=== PATIENT | female | born 1935 | race African-American/Black ===

== ENCOUNTER 2025-05-24 12:48 | Outpatient (AMB) | payer MEDICARE, SELFPAY ==
--- NOTE | 2025-05-24 13:01 | A.OFFPC_ITS ---
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 Accompanied by: Daughter Allergies No Known Allergies Allergy (Verified 05/24/25 13:07) Medication List - Last Reconciled 05/24/25 by Emi Cantu MD ascorbic acid (vitamin C) 125 mg PO DAILY cholecalciferol (vitamin D3) 25 mcg PO DAILY clopidogrel 75 mg PO DAILY donepezil 10 mg PO BEDTIME ferrous sulfate 325 mg PO DAILY insulin degludec (Tresiba FlexTouch U-100 insulin) 12 units subcut DAILY latanoprost 0.005% 1 drp ophthalmic (eye) BEDTIME levothyroxine (Levoxyl) 75 mcg PO DAILY losartan 100 mg PO DAILY losartan 50 mg PO DAILY memantine 10 mg PO BID rosuvastatin 5 mg PO DAILY vitamin B complex 1 tab PO DAILY Tobacco use date assessed: 05/24/25 Fall risk assessment: No Falls in past year Last assessed Fall Risk: 05/24/25 Dental Screening Dental Screen Date: 05/24/25 Did you have a dental visit in the last 12 months?: No Did you have a dental problem in the last 6 months where you did not have access to dental care?: No HPI HPI Comments History of Present Illness Details History of Present Illness The patient is an 89-year-old female presenting for a Medicare wellness visit. Health Risk Assessment completed and reviewed, sent to scanning. Patient has baseline dementia, no opioid use. Essential Hypertension: The patient has fluctuating blood pressure, with recent hypotensive episodes. Amlodipine was discontinued and losartan was reduced, stabilizing her blood pressure and reducing urinary frequency. Type 2 Diabetes Mellitus: The patient has morning hypoglycemic episodes, with glucose levels between 63-79 mg/dL. Tresiba at 14 units is administered but may need adjustment. Transition to Lantus will be needed due to insurance changes. Dementia: Baseline dementia managed with donepezil and memantine. No significant medication concerns noted currently. Hypothyroidism: Managed with levothyroxine. Reports fatigue and will undergo thyroid panel evaluation. Iron Deficiency Anemia: Previously prescribed iron supplements, continued daily. Vitamin D deficiency- taking vitamin D daily Vitamin b12 deficiency- taking b complex vitamin Hospitalization for Upper Respiratory Infection: Admitted in December for three days, followed by 14 days in rehab at [facility]. Significant weakness noted. History of Stroke: On stable clopidogrel therapy. No acute concerns voiced. Bilateral Trace Peripheral Edema: Noted trace edema on physical examination, clinically insignificant. 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 - Enjoys playing [employer] and cognitive [employer] games - Has some periods of social isolation w hen the caregiver is not present Diagnostic Results: Labs: - Home Blood glucose readings: 05/20 - 76 mg/dL, 05/21 - 63 mg/dL, 05/22 - 79 mg/dL, 05/23 - 78 mg/dL, 05/24 - 106 mg/dL Review of Systems - Constitutional: Denies dizziness, incr eased fatigue noted - Cardiovascular: Reports fluctuating bl ood pressure - Endocrine: Reports low morning blood s ugars - Hematologic: Reports fatigue, possible anemia - Neurological: Denies acute changes in cognition, reports baseline dementia Physical Exam - General- Appears well-groomed, coopera tive - Ears- Cerumen present in right ear - Cardiovascular- Heart sounds normal, s oft murmur across precordium - Abdomen- Abdomen soft with normal ashu l sounds - Peripheral Vascular- Trace edema noted bilaterally in lower extremities Assessment and Plan 1. Essential Hypertension - Monitor blood pressure - Continue losartan, hydrate daily 2. Type 2 Diabetes Mellitus - Decrease Tresiba to 12 units for use w hen fasting sugars are more than 130 - Monitor glucose levels 3. Dementia - Continue current meds - Encourage cognitive activities 4. Hypothyroidism - Check thyroid function 5. Iron Deficiency Anemia - Monitor iron levels - Continue iron supplements 6. History of Stroke - Continue clopidogrel 7. Bilateral Trace Peripheral Edema - Monitor for changes Discussion Notes During today's visit, I reviewed the management and treatment options for the patient's current health concerns, such as hypertension and diabetes management. We discussed implementing changes to Tresiba dosage based on morning blood glucose levels to avoid hypoglycemia. The transition to Lantus was discussed and planned for June. We addressed the risks and benefits of continuous medications, including clopidogrel for stroke prevention and the need for monitoring blood pressure and glucose levels to manage treatment efficacy and side effects. I recommended specific tests to determine the causes of fatigue, including a thyroid panel and iron studies. Further discussion covered the importance of maintaining a balanced diet, regular hydration, and continued cognitive and physical activity engagement to promote overall well-being. I spoke with the patient's caregiver about speaking with case management re support services. Pt has limited benefits and she has a lot of out of pocket costs. Discussed preventive guidelines indicated for age including bone density, COVID 19 vaccine, already received flu vaccine and RSV. Patient Instructions - Monitor blood pressure at home regular ly. - Take 12 units of Tresiba if fasting bl ood sugar is over 130 mg/dL. - Maintain a balanced diet and hydrate w ell. - Stick to exercise routines, using stre tch bands and bicycle pedals. - Record any changes in symptoms and rep ort at the next visit. - Watch for signs of dizziness or fatigu e and report as needed. - Complete laboratory tests as scheduled . - Continue taking all prescribed medicat ions. - Engage in memory-stimulating activitie s daily. [facility] Medical History (Updated 05/24/25 @ 15:10 by Emi Cantu MD) Routine medical exam Anemia Vitamin D deficiency History of stroke History of DVT (deep vein thrombosis) History of pulmonary embolism Peripheral neuropathy Dementia Type 2 diabetes mellitus with hypoglycemia Hypertension B12 deficiency anemia Hypothyroidism Surgical History (Updated 05/23/25 @ 16:28 by Emi Cantu MD) History of cholecystectomy Social History Housing: House Patient Tobacco Use Status: Never used Tobacco e-Cigarette/Vaping Use: Never Used service: No Current occupational status: retired Questionnaire AUDIT C Alcohol Use Questionnaire (AUDIT-C) 1. How often do you have a drink containing alcohol?: Never 3. How often do you have six or more drinks on one occasion?: Never Total Score: 0 Physical exam (Primary Care) Vital Signs: Last Vital Signs Temp 97.9 F 05/24/25 13:13 Pulse 68 05/24/25 13:13 Resp 16 05/24/25 13:13 BP 120/74 05/24/25 13:13 Pulse Ox 97 05/24/25 13:13 Oxygen Delivery Method Room Air 05/24/25 13:13 Oxygen Flow Rate 97.9 05/24/25 13:13 BMI result Body Mass Index 23.7 Tobacco/Smoking Status: Tobacco use Status Tobacco use date assessed 05/24/25 05/24/25 13:05 Patient Tobacco Use Status Never used Tobacco 05/24/25 13:16 e-Cigarette/Vaping Use Never Used 05/24/25 13:16 Coding Level of Care Code Complex EM visit Add On G2211 Diagnoses Primary hypertension I10 Hypertension type: primary hypertension Type 2 diabetes mellitus with hypoglycemia without coma, with long-term current use of insulin E11.649; Z79.4 Diabetes mellitus mcfp insulin use: with intermediate card tender use Diabetes mellitus complication detail: without coma Acquired hypothyroidism E03.9 Hypothyroidism type: acquired Vitamin D deficiency E55.9 Other vitamin B12 deficiency anemia D51.8 Vitamin B12 deficiency anemia type: other B12 deficiency Iron deficiency anemia, unspecified iron deficiency anemia type D50.9 Anemia type: iron deficiency Iron deficiency anemia type: unspecified iron deficiency Dementia without behavioral disturbance, psychotic disturbance, mood disturbance, or anxiety, unspecified dementia severity, unspecified dementia type F03.90 Dementia type: unspecified type Dementia severity: unspecified severity Dementia behavioral or psychological symptom: without behavioral, psychotic, or mood disturbance or anxiety Routine medical exam Z00.00 Assessment & Plan Assessment & Plan (1) Hypertension: Code(s): I10 - Essential (primary) hypertension Category: Medical Qualifiers: Hypertension type: primary hypertension Qualified Code(s): I10 - Essential (primary) hypertension (2) Type 2 diabetes mellitus with hypoglycemia: Code(s): E11.649 - Type 2 diabetes mellitus with hypoglycemia without coma Category: Medical Qualifiers: Diabetes mellitus intermediate card tender insulin use: with intermediate card tender use Diabetes mellitus complication detail: without coma Qualified Code(s): E11.649 - Type 2 diabetes mellitus with hypoglycemia without coma; 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 (3) Hypothyroidism: Code(s): E03.9 - Hypothyroidism, unspecified Category: Medical Qualifiers: Hypothyroidism type: acquired Qualified Code(s): E03.9 - Hypothyroidism, unspecified (4) Vitamin D deficiency: Code(s): E55.9 - Vitamin D deficiency, unspecified Category: Medical (5) B12 deficiency anemia: Code(s): D51.9 - Vitamin B12 deficiency anemia, unspecified Category: Medical Qualifiers: Vitamin B12 deficiency anemia type: other B12 deficiency Qualified Code(s): D51.8 - Other vitamin B12 deficiency anemias (6) Anemia: Code(s): D64.9 - Anemia, unspecified Category: Medical Qualifiers: Anemia type: iron deficiency Iron deficiency anemia type: unspecified iron deficiency Qualified Code(s): D50.9 - Iron deficiency anemia, unspecified (7) Dementia: Code(s): F03.90 - Unspecified dementia, unspecified severity, without behavioral disturbance, psychotic disturbance, mood disturbance, and anxiety Category: Medical Qualifiers: Dementia type: unspecified type Dementia severity: unspecified severity Dementia behavioral or psychological symptom: without behavioral, psychotic, or mood disturbance or anxiety Qualified Code(s): F03.90 - Unspecified dementia, unspecified severity, without behavioral disturbance, psychotic disturbance, mood disturbance, and anxiety (8) Routine medical exam: Code(s): Z00.00 - Encounter for general adult medical examination without abnormal findings Category: Medical Plan - Adjust Tresiba dosage to 12 units if glucose >130 mg/dL - Conduct HbA1c, iron studies, CBC, and thyroid panel - Engage in cognitive and physical activities - Ensure adequate hydration and balanced diet - Coordinate elder support services Orders: Orders Comprehensive Met. Panel Today E03.9 - Hypothyroidism, unspecified, E11.649 - Type 2 diabetes mellitus with hypoglycemia without coma, I10 - Essential ( primary) hypertension TSH reflex Free T4 Today D51.9 - Vitamin B12 deficiency anemia, unspecified, E03.9 - Hypothyroidism, unspecified, E11.649 - Type 2 diabetes mellitus with hypoglycemia without coma, E55.9 - Vitamin D deficiency, unspecified Vitamin B12 Today D51.9 - Vitamin B12 deficiency anemia, unspecified IRON PROFILE Today D64.9 - Anemia, unspecified Folate Today D51.9 - Vitamin B12 deficiency anemia, unspecified, D64.9 - Anemia, unspecified XR DEXA axial skeleton Today Z78.0 - Asymptomatic menopausal state Complete Blood Count Auto Diff Today E55.9 - Vitamin D deficiency, unspecified Microalbumin, Random (w Creat) Today I10 - Essential (primary) hypertension Hemoglobin A1c Today E11.649 - Type 2 diabetes mellitus with hypoglycemia without coma Vitamin D 25-OH Total Today E55.9 - Vitamin D deficiency, unspecified Lipid Panel Today E11.649 - Type 2 diabetes mellitus with hypoglycemia without coma, I10 - Essential (primary) hypertension Medications: New clopidogrel 75 mg PO DAILY 90 tabs 3RF donepezil 10 mg PO BEDTIME 90 tabs 3RF ferrous sulfate 325 mg PO DAILY 90 tabs 3RF levothyroxine (Levoxyl) 75 mcg PO DAILY 90 tabs 3RF memantine 10 mg PO BID 180 tabs 3RF rosuvastatin 5 mg PO DAILY 90 tabs 3RF Patient Instructions: Decrease tresiba to 12 units to be used when fasting sugars are more than 130 get labs schedule bone density
[2025-05-24 13:13] VITALS: BP 120/74; PULSE 68; RESP 16; TEMP 36.6; O2SAT 97; BMI 23.7
--- OUTSIDE RECORDS SUMMARY | 2025-05-24 14:42 | XMS_ITS | Patient Health Record ---
Author Organization [facility] Address [address] [address] Care Team Providers Care Base Cloth Inspector Name Role Phone Emi Cantu Primary Care Provider Unavaila ble SILVIANO MENDEZ Unavailable [phone] Allergies Allergen (clinical drug ingredient) Drug/Non Drug Allergy documented on EMR Reaction Allergy Type Onset Date Status atorvastatin Atorvastatin leg heaviness Drug Allergy Active lisinopril Lisinopril cough Drug Allergy Activ e ramipril Ramipril cough Drug Allergy Active Reason For Referral No Information Medications Medication SIG (Take, Route, Frequency, Duration) Notes Start Date End Date Status Donepezil HCl 10 MG 1 tablet at bedtime Orally Once a day Active Losartan Potassium 100 MG 1 tablet Orally Once a day Active Memantine HCl 10 MG 1 tablet Orally Once a day Active Tresiba FlexTouch 100 UNIT/ML as directed Subcutaneous Act cristela Calcium 600+D Active Vitamin B12 1000 MCG 1 tablet Orally Once a day Active Ferrous Sulfate 325 (65 Fe) MG 1 tablet Orally Three times a Week Active Crestor 5 MG 1 tablet Orally Once a day Active Levoxyl 75 MCG 1 tablet in the morn ing on an empty stomach Orally Once a day Active Vitamin D3 50 MCG (2000 UT) 1 capsule Orally Once a day Active Clopidogrel Bisulfate 75 MG 1 tablet Orally Once a day A ctive Problems Problem Type SNOMED Code ICD Code Onset Dates Problem Status W/U Status Risk Notes Problem Acquired hammer toe of right foot ([id number] 105) Other hammer toe(s) (acquired), right foot (M20.41) Active confirmed Problem Acquired hammer toe of left foot ([id number] 103) Other hammer toe(s) (acquired), left foot (M20.42) Active confirmed Encounters Encounter Location Date Provider Diagnosis [facility] [address] [address] 03/21/2025 SILVIANO MENDEZ Other hammer toe(s) (acquired), right foot M20.41 ; Other hammer toe(s) (acquired), left foot M20.42 and 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 Past medical history was reviewed. Discussed proper glucose control, exercise, and diet. I stressed the importance of a HgbA1c below 7. Explained to patient and daughter proper shoe gear and importance of daily foot checks. I stressed with the patient that they should never walk barefoot. Patient has lesser hammertoes that are not bothersome. She wears supportive shoe gear and has great arterial perfusion. I assured patient and daughter that I see no acute concerns at this time. I discussed things to watch for. I advised they call if there are any questions or concerns. I can recheck in 6mo or sooner if needed. Plan Of Treatment Next Appt Details Provider Name:SILVIANO MENDEZ, 09/24/2025 01:00:00 PM, [address] [facility], [place] [address], [place], [address], Insurance Providers Payer Name Payer Address Payer Phone Subscriber Number Group Number Insured Name Patient Relationship to Insured Coverage Start Date Coverage End Date [employer] of [place] [id number] [id number] Kylee Strong Self - patient is the insured Medical (General) History Medical History History ICD Code Anemia Dementia Glaucoma History of DVT of lower extremity History of pulmonary embolism History of stroke Hypertension Hypothyroidism Memory change Peripheral neuropathy Type 2 diabetes mellitus Urinary Frequency Hospitalization History Reason Date(Month/Year) upper respiratory infection 12/2024
== END 2025-05-24 14:50 | disposition home or self-care (01) ==
LOC: HO.HMCHD 12:49
PROVIDERS: PCP Internal Medicine; Visit Provider Internal Medicine
DX: I10 Essential (primary) hypertension (principal); E11.649 Type 2 diabetes mellitus with hypoglycemia without coma; Z79.4 Long term (current) use of insulin; E03.9 Hypothyroidism, unspecified; E55.9 Vitamin D deficiency, unspecified; D51.8 Other vitamin B12 deficiency anemias; D50.9 Iron deficiency anemia, unspecified

== ENCOUNTER → 2025-05-24 12:48 | Outpatient (BNVA) | payer MEDICARE, SELFPAY | PROVIDERS: PCP Internal Medicine; Visit Provider Internal Medicine | DX: I10 Essential (primary) hypertension (principal); E11.649 Type 2 diabetes mellitus with hypoglycemia without coma; E03.9 Hypothyroidism, unspecified; E55.9 Vitamin D deficiency, unspecified; D51.8 Other vitamin B12 deficiency anemias; D50.9 Iron deficiency anemia, unspecified; F03.90 Unspecified dementia, unspecified severity, without behavioral disturbance, psychotic disturbance, mood disturbance, and anxiety; R60.0 Localized edema; Z86.73 Personal history of transient ischemic attack (TIA), and cerebral infarction without residual deficits; Z79.4 Long term (current) use of insulin; Z79.899 Other long term (current) drug therapy | CPT/HCPCS: 99212 ==

== ENCOUNTER 2025-07-18 15:30 | Inpatient (IN) | payer MEDICARE, SELFPAY ==
[2025-07-18] VITALS (7 sets, daily range): BP systolic 142–185; BP diastolic 76–92; PULSE 80–107; RESP 16–21; TEMP 37.1–39.3; O2SAT 93–99; BMI 19.4
--- NOTE | ~2025-07-18 | XR_ITS ---
EXAMINATION: XR CHEST CLINICAL INFORMATION: ?pneunomia COMPARISON: None available. TECHNIQUE: Frontal view of the chest was obtained. FINDINGS: Lungs: Low lung volumes with elevation of the right hemidiaphragm. No focal consolidation. No evidence of pulmonary edema. Pleura: No pleural effusion or pneumothorax. Heart/Mediastinum: Cardiomediastinal silhouette is within normal limits. Bones: No acute findings. XR/XR chest 1V IMPRESSION: No acute cardiopulmonary process. Electronically signed by: Zhane Elizabeth MD 07/18/2025 04:59 PM EST
--- NOTE | ~2025-07-18 | XR_ITS ---
EXAMINATION: XR CHEST CLINICAL INFORMATION: cough COMPARISON: Prior day. TECHNIQUE: AP portable view of the chest was obtained. FINDINGS: There is an elevated right hemidiaphragm, unchanged from the prior examination. The cardiac, hilar, and mediastinal contours are normal. The lungs demonstrate increased patchy subtle opacities in the left lower lung region, more conspicuous than yesterday's exam, possibly representing developing pneumonia. The right lung appears clear. There is no effusion or pneumothorax. No focal osseous or soft tissue abnormality. XR/XR chest 1V IMPRESSION: Findings suggesting developing left lower lobe pneumonia in the appropriate clinical setting. Electronically signed by: Gene Guajardo MD 07/19/2025 12:42 PM JI
--- NOTE | ~2025-07-18 | US_ITS ---
CLINICAL HISTORY: h o DVT Venous duplex ultrasound bilateral lower extremity Comparison: None provided Findings: There is deep venous thrombus in the left posterior tibial vein The visualized deep veins are otherwise fully compressible with normal Doppler color flow and spectral tracings. No popliteal cyst. IMPRESSION: 1. Positive for left posterior tibial deep vein thrombosis. This document has been electronically signed by: Navi Pinto MD on 07/22/2025 18:38:36
--- NOTE | 2025-07-18 15:58 | ECG_ITS ---
Test Reason : FEVER Blood Pressure : */* mmHG Vent. Rate : 100 BPM Atrial Rate : 100 BPM P-R Int : 168 ms QRS Dur : 68 ms QT Int : 354 ms P-R-T Axes : 60 -6 49 degrees QTcB Int : 456 ms Normal sinus rhythm Septal infarct , age undetermined Abnormal ECG No previous ECGs available Referred By: Generic ED Physician Electronically Signed By: William Paz
[2025-07-18 16:29] LABS: MANUAL DIFF FLAG NO
[2025-07-18 16:31] LABS: Appearance Urine Clear; Glucose Urine UA Negative (Negative); PH 6.5 (5.0-9.0); Specific Gravity - Urine 1.020 (1.005-1.025); UMIC TRIGGER UACC YES
[2025-07-18 16:38] LABS: INTERNATIONAL NORM RATIO 1.1 (0.9-1.1); Prothrombin Time 13.0 SEC (11.2-13.5)
[2025-07-18 16:39] LABS: IDNOW Serial# 58CA691E; Influenza B2 Negative (Negative)
[2025-07-18 16:41] LABS: Hematocrit 38.7 % (37.0-47.0); Hemoglobin 12.8 g/dl (12.0-16.0); Imm Gran Abs Auto 0.04 X10*3/uL (0.00-0.03); Imm Gran Pct Auto 0.6 % (0.0-0.4); Lymphocytes Absolute Auto 1.1 X10*3/uL (1.2-4.9); Mean Corpuscular HGB Conc 33.1 g/dl (31.0-35.0); Mean Corpuscular Hemoglobin 30.7 pg (27.0-33.0); Mean Corpuscular Volume 92.8 fL (80.0-98.0); NRBC Abs Auto 0.000 X10*3/uL (0.0-0.012); NRBC Pct Auto 0.0 /100WBC (0.0-0.2); Platelet Count 157 X10*3/uL (160-400); Red Blood Count 4.17 X10*6/uL (4.20-5.50); White Blood Count 6.8 X10*3/uL (4.8-10.8)
[2025-07-18 16:44] LABS: UACC Culture Trigger YES
[2025-07-18 16:47] LABS: Alanine Aminotransferase 41 U/L (0-31); Albumin Level 3.4 g/dL (3.5-5.0); Alkaline Phosphatase 87 U/L (39-117); Anion Gap 11 (12-20); Aspartate Amino Transferase 77 U/L (5-31); Blood Urea Nitrogen 12 mg/dL (9-16); Calcium 8.9 mg/dL (8.4-10.2); Carbon Dioxide 23 mmol/L (22-29); Chloride 105 mmol/L (96-108); Creatinine Clr Calc Pharmacy 44.2; Estimated Glomerular Filt Rate > 60; Magnesium 1.8 mg/dL (1.6-2.6); Potassium 4.0 mmol/L (3.3-5.1); Sodium 135 mmol/L (135-145); Total Protein 6.7 g/dL (6.5-8.0)
--- NOTE | 2025-07-18 16:48 | ED.FEVER ---
HPI - Fever General Chief Complaint: Fever Stated Complaint: ?Uti, weakness, ?pneumonia Time Seen by Provider: 07/18/25 16:04 History of Present Illness HPI Narrative: Patient is an 89-year-old female with a history of dementia. History of diabetes. History of hypertension. Presented today with generalized malaise weakness. High fever up to 102 some mild coughing. Patient from home. Lives with her granddaughter. Her daughter also visits. She also has additional help at home. Generalized malaise weakness going on for about 24 hours. Related Data Home Medications ?Medication ?Instructions ?Recorded ?Confirmed ascorbic acid (vitamin C) 125 mg 125 mg PO DAILY 05/24/25 07/18/25 chewable tablet cholecalciferol (vitamin D3) 25 25 mcg PO DAILY 05/24/25 07/19/25 mcg (1,000 unit) capsule insulin degludec 100 unit/mL (3 14 unit subcut DAILY PRN BG >130 05/24/25 07/19/25 mL) subcutaneous pen (Tresiba FlexTouch U-100 insulin) latanoprost 0.005 % eye drops 1 drp ophthalmic (eye) BEDTIME 05/24/25 07/18/25 losartan 50 mg tablet 50 mg PO DAILY 05/24/25 07/19/25 cyanocobalamin (vitamin B-12) 2,500 mcg PO DAILY 07/19/25 07/19/25 2,500 mcg tablet rosuvastatin 5 mg tablet 5 mg PO BEDTIME 07/19/25 07/19/25 Previous Rx's ?Medication ?Instructions ?Recorded blood sugar diagnostic (FreeStyle #100 ea 05/24/25 Lite Strips) blood-glucose meter (FreeStyle #1 ea 05/24/25 Lite Meter kit) clopidogrel 75 mg tablet 75 mg PO DAILY #90 tabs 05/24/25 donepezil 10 mg tablet 10 mg PO BEDTIME #90 tabs 05/24/25 ferrous sulfate 325 mg (65 mg 325 mg PO DAILY #90 tabs 05/24/25 iron) tablet lancets 28 gauge (FreeStyle #100 ea 05/24/25 Lancets) levothyroxine 75 mcg tablet 75 mcg PO DAILY #90 tabs 05/24/25 (Levoxyl) memantine 10 mg tablet 10 mg PO BID #180 tabs 05/24/25 Allergies Allergy/AdvReac Type Severity Reaction Status Date / Time No Known Allergies Allergy Verified 07/18/25 15:57 Review of Systems Review of Systems: Positive generalized malaise weakness PMFSH Past Medical History Attestation statement: The following information was validated with the patient. Medical History Routine medical exam Anemia Vitamin D deficiency History of stroke History of DVT (deep vein thrombosis) History of pulmonary embolism Peripheral neuropathy Dementia Type 2 diabetes mellitus with hypoglycemia Hypertension B12 deficiency anemia Hypothyroidism Surgical History History of cholecystectomy Social History Social History Housing: House Patient Tobacco Use Status: Never used Tobacco Smoked in Last 30 Days: No e-Cigarette/Vaping Use: Never Used Use of substances other than those prescribed or required for medical reasons: No Advance Directives: No Advance Directives Information Provided: No Do you have a plan to hurt others: No Plan service: No Current occupational status: retired Physical Exam Exam: Exam: Appearance: Alert. Oriented X1. No acute distress. Eyes: Pupils equal, round and reactive to light. ENT: Pharynx normal. Neck: Normal inspection. Neck supple. No lymph nodes noted. No crepitus CVS: Normal heart rate and rhythm. Pulses normal. Normal S1 and S2 Respiratory: No respiratory distress. Breath sounds normal. No Wheezing. No rales Abdomen: Soft and nontender. No rigidity. No distention. good BS x4 Skin: Skin warm and dry. Normal skin color. Normal skin turgor. Extremities: No lower extremity edema. Neurovascular intact to all extremities. No Lacerations. No Rash Neuro: Oriented X 1. No motor deficit. No sensory deficit. Moving all extermities. No slurred speech Vital Signs: Vital Signs: Last Vital Signs Temp 98.1 F 07/19/25 15:47 Pulse 84 07/19/25 15:47 Resp 20 07/19/25 15:47 BP 143/71 H 07/19/25 15:47 Pulse Ox 94 07/19/25 15:47 O2 Del Method Room Air 07/19/25 15:47 BMI result Body Mass Index 19.4 Course Reevaluation(s) Reevaluation #1: Time: 09:34 Date: 07/19/25 Provider: Kristin Kirk PA-C Patient in physician observation for case management needs. No acute events reported overnight.? No current issues or complaints. Patient is positive for Flu A and is febrile with a temp of 103.1 but has not taken Tylenol/ibuprofen for management. I put a scheduled order for 650 mg of Tylenol to be given QID for fever. Physical therapy recommends STR and currently awaiting bed placement. - On physical exam patient lungs clear to auscultation without rhonchi, expiratory wheeze, no increased work of breathing or muscle use noted, patient without tachycardia. We will treat with a dose of 650 mg p.o. Tylenol and reassess fever. - Time: 11:16 Patient temperature is 103.8? rectally after 650 mg p.o. Tylenol. Patient will receive 1 L IV fluids, with 15 mg IV Toradol (creatinine WNL) and we will reassess after administration. 07/19/2025 1151 Christine Sales PA-C ---> I spoke with the patient's daughter at the patient's bed side at length about our plan for management of the patient. I explained to the patient and the daughter that at this time, she does not meet admission criteria. However, we are going to repeat her chest x-ray and monitor her fever. If her fever continues to be elevated after our previously noted interventions - I will discuss other options with the patient and her daughter. Patient's daughter states that she was most concerned about the patient potentially being discharged back home today when she is as weak as she is. I assured the patient and her daughter that we are not discharging her from the department at this time. Patient's daughter informed me the patient has had a history of DVT approximately 10 years ago and PE 5 years ago. Patient is only on Plavix at this time without any anti-coagulation medication. Patient placed in compression stockings + started on lovenox. Reevaluation #2: Date: 07/19/25 Provider: Kristin Kirk PA-C There were concerns that the patient has been worsening, is positive for flu and was febrile with a rectal temp of 103.8. Patient was given 650 mg p.o. Tylenol, 1 L IV fluids, and 15 mg IV Toradol and CXR. CXR concerning for right lower lobe pneumonia, patient was given 1 g ceftriaxone for bacterial coverage, and patient was started on compression stockings and Lovenox due to history of DVT approximately 10 years ago, and PE 5 years ago. Patient's symptoms most likely due to flu a, I do not suspect sepsis at this time. I reached out to hospitalist Dr. Hercules for admission to medicine due to curb 65 score of 2 and will be admitted to Medicine for further evaluation and management of pneumonia and flu A. My colleague Christine BENTLEY spoke with family and updated them on admission and were agreeable to the plan. Time: 15:58 Medications Administered Generic Name Dose Route Start Last Admin Trade Name Freq PRN Reason Stop Dose Admin Acetaminophen 650 mg 07/19/25 09:34 07/19/25 10:23 Acetaminophen 325 Mg Tablet PO 650 mg QID PRN Administration Fever Ascorbic Acid 125 mg 07/18/25 20:45 07/19/25 08:50 Ascorbic Acid 250 Mg Tablet PO 125 mg DAILY PREETI Administration Clopidogrel Bisulfate 75 mg 07/19/25 09:00 07/19/25 08:50 Clopidogrel Bisulfate 75 Mg Tablet PO 75 mg DAILY PREETI Administration Donepezil HCl 10 mg 07/18/25 21:00 07/18/25 21:58 Donepezil Hcl 10 Mg Tablet PO 10 mg BEDTIME PREETI Administration Enoxaparin Sodium 40 mg 07/19/25 12:15 07/19/25 12:40 Enoxaparin Sodium 40 Mg/0.4 Ml Syringe SUBCUT 40 mg Q24H PREETI Administration Ferrous Sulfate 324 mg 07/19/25 09:00 07/19/25 08:50 Ferrous Sulfate 324 Mg Tablet. PO 324 mg DAILY PREETI Administration Latanoprost 1 drop 07/18/25 21:30 07/18/25 21:58 Latanoprost 0.005 % Ophth Rupinder 2.5 Ml Drops EYE-BOTH 1 drop BEDTIME PREETI Administration Levothyroxine Sodium 75 mcg 07/18/25 20:45 07/19/25 08:49 Levothyroxine Sodium 75 Mcg Tablet PO 75 mcg DAILY PREETI Administration Memantine 10 mg 07/18/25 21:00 07/19/25 08:51 Memantine Hcl 10 Mg Tablet PO 10 mg BID PREETI Administration Multivitamins/Vitamin C 1 tab 07/18/25 20:45 07/19/25 08:50 Multivitamin Tablet PO 1 tab DAILY PREETI Administration Vitamin D 25 mcg 07/18/25 20:45 07/19/25 08:50 Cholecalciferol (Vitamin D3) 25 Mcg Tablet PO 25 mcg DAILY PREETI Administration Discontinued Medications Generic Name Dose Route Start Last Admin Trade Name Aly PRN Reason Stop Dose Admin Acetaminophen 650 mg 07/18/25 16:38 07/18/25 16:58 Acetaminophen 325 Mg Tablet PO 07/18/25 16:39 650 mg ONCE ONE Administration Atorvastatin Calcium 20 mg 07/18/25 20:45 07/19/25 08:51 Atorvastatin Calcium 20 Mg Tablet PO 20 mg DAILY PREETI Administration Azithromycin 500 mg 07/19/25 13:32 07/19/25 15:42 Azithromycin 500 Mg Tablet PO 07/19/25 13:33 500 mg ONCE ONE Administration Sodium Chloride 500 mls @ 999 mls/hr 07/18/25 17:00 07/18/25 17:35 Ns IV 07/18/25 17:30 Infused .Q31M PREETI Infusion Sodium Chloride 1,000 mls @ 999 mls/hr 07/18/25 20:15 07/18/25 21:57 Ns IV 07/18/25 21:15 Infused .Q1H1M PREETI Infusion Lactated Ringer's 1,000 mls @ 999 mls/hr 07/19/25 11:15 07/19/25 13:55 Lr IV 07/19/25 12:15 Infused .Q1H1M ONE Infusion Ceftriaxone Sodium 1 gm/ 50 mls @ 100 mls/hr 07/19/25 13:32 07/19/25 14:59 Sodium Chloride IV 07/19/25 14:01 Infused ONCE ONE Infusion Insulin Glargine 7 unit 07/19/25 09:00 07/19/25 08:52 Insulin Glargine,Hum.Rec.Anlog 100 Unit/Ml 10 Ml Vial SUBCUT 7 unit DAILY PREETI Administration Ketorolac Tromethamine 15 mg 07/18/25 16:51 07/18/25 16:59 Ketorolac Tromethamine 15 Mg/Ml Vial IVPUSH 07/18/25 16:52 15 mg ONCE ONE Administration Ketorolac Tromethamine 15 mg 07/19/25 11:15 07/19/25 11:31 Ketorolac Tromethamine 15 Mg/Ml Vial IVPUSH 07/19/25 11:16 15 mg ONCE ONE Administration Losartan Potassium 100 mg 07/18/25 20:45 07/19/25 08:49 Losartan Potassium 50 Mg Tablet PO 100 mg DAILY PREETI Administration Protocol Non-Formulary Medication 325 mg 07/18/25 20:45 07/18/25 22:01 Ferrous Sulfate PO Not Given DAILY PREETI Oseltamivir Phosphate 75 mg 07/18/25 16:53 07/18/25 17:02 Oseltamivir Phosphate 75 Mg Capsule PO 07/18/25 16:54 75 mg ONCE ONE Administration Medical Decision Making Medical Decision Making [facility] Narrative: Patient is 89 years old tested positive for influenza. My interpretation patient's chest x-ray is grossly negative. O2 sat maintained at% on room air patient is very weak unable to ambulate. Discussed with the hospitalist team felt patient not appropriate for admission. Case management was consulted physical therapy consult put in. Will need further evaluation in a.m.. Patient no acute distress. Urine is not infected. Blood count showed a normal white cell count of 6.8. Electrolytes showed a lactate of 2.0. No severe sepsis. Patient is troponin was negative. Differential Diagnosis Differential Diagnoses: The differential diagnosis associated with the presentation includes Influenza Admission/Observation Consideration of admission/observation: Escalation of care including admission/observation considered Consult Healthcare Provider Management of the patient was discussed with: Hospitalist Lab Data [facility] Lab Attestation statement: I reviewed the patient's lab results. 07/18/25 16:09 07/18/25 16:09 Labs: Lab Results 07/18/25 07/19/25 07/19/25 Range/Units 16:09 08:00 11:37 WBC 6.8 (4.8-10.8) X10*3/uL RBC 4.17 L (4.20-5.50) X10*6/uL Hgb 12.8 (12.0-16.0) g/dl Hct 38.7 (37.0-47.0) % MCV 92.8 (80.0-98.0) fL MCH 30.7 (27.0-33.0) pg MCHC 33.1 (31.0-35.0) g/dl RDW 13.2 (11.0-16.0) % Plt Count 157 L (160-400) X10*3/uL MPV 10.1 (9.4-12.3) fL Immature Gran % (Auto) 0.6 H (0.0-0.4) % Neut % (Auto) 76.3 H (45-73) % Lymph % (Auto) 16.4 L (20-40) % [place] % (Auto) 6.3 (2-11) % Eos % (Auto) 0.0 (0-4) % Baso % (Auto) 0.4 (0-2) % Lymph # (Auto) 1.1 L (1.2-4.9) X10*3/uL [place] # (Auto) 0.4 (0.1-1.2) X10*3/uL Eos # (Auto) 0.0 (0.0-0.4) X10*3/uL Baso # (Auto) 0.0 (0.0-0.2) X10*3/uL Abs Immat Gran (auto) 0.04 H (0.00-0.03) X10*3/uL Absolute Neuts (auto) 5.2 (2.0-8.3) x10*3/uL Absolute Nucleated RBC 0.000 (0.0-0.012) X10*3/uL Nucleated RBC % (auto) 0.0 (0.0-0.2) /100WBC PT 13.0 (11.2-13.5) SEC INR 1.1 (0.9-1.1) Sodium 135 (135-145) mmol/L Potassium 4.0 (3.3-5.1) mmol/L Chloride 105 (96-108) mmol/L Carbon Dioxide 23 (22-29) mmol/L Anion Gap 11 L (12-20) BUN 12 (9-16) mg/dL Creatinine 0.77 (0.5-1.4) mg/dL Estim Creat Clear Calc 44.2 Estimated GFR > 60 POC Glucose 118 H 126 H (60-115) mg/dL Random Glucose 151 H (60-115) mg/dL Lactic Acid 2.0 (0.5-2.0) mmol/L Calcium 8.9 (8.4-10.2) mg/dL Magnesium 1.8 (1.6-2.6) mg/dL Total Bilirubin 0.5 (0.0-1.0) mg/dL AST 77 H (5-31) U/L ALT 41 H (0-31) U/L Alkaline Phosphatase 87 (39-117) U/L Troponin I High Sens < 2.7 (<3.5-17.0) ng/L NT-Pro-B Natriuret Pep 644.1 H (<300) pg/mL Total Protein 6.7 (6.5-8.0) g/dL Albumin 3.4 L (3.5-5.0) g/dL Urine Color Yellow Urine Appearance Clear Urine pH 6.5 (5.0-9.0) Ur Specific Power 1.020 (1.005-1.025) Urine Protein Trace (Neg-Trace) mg/dL Urine Glucose (UA) Negative (Negative) mg/dL Urine Ketones Negative (Negative) mg/dL Urine Blood Negative (Negative) Urine Nitrite Negative (Negative) Ur Leukocyte Esterase Small (1+) H (Negative) Urine RBC 0-2 (0-2) /HPF Urine WBC 0-5 (0-5) /HPF Ur Squamous Epith Cells 0-2 (0-2) /HPF Urine Bacteria None Seen (None Seen) Hyaline Casts 0-2 (0-2) /LPF Urine Opiates Screen Not Detected (Not Detect) Ur Buprenorphine Scrn Not Detected (Not Detect) ng/mL Ur Oxycodone Screen Not Detected (Not Detect) ng/mL Urine Methadone Screen Not Detected (Not Detect) ng/mL Urine Fentanyl Screen Not Detected (Not Detect) Ur Barbiturates Screen Not Detected (Not Detect) Ur Phencyclidine Scrn Not Detected (Not Detect) Ur Amphetamines Screen Not Detected (Not Detect) U Benzodiazepines Scrn Not Detected (Not Detect) Urine Cocaine Screen Not Detected (Not Detect) U Marijuana (THC) Screen Not Detected (Not Detect) Influenza Type A (ALEXI) Positive A (Negative) Influenza Type B (ALEXI) Negative (Negative) Influenza A & B Note See Note Independent Interpretation I performed an independent interpretation of an: EKG ( sinus heart rate is 100 DC QRS QTC within normal limits is no acute ST segment elevation) and Plain X-Ray ( chest x-ray is grossly negative) Radiology Impression Discussion of test interpretation with radiology: I have reviewed the radiologist's reading. Independent Historian Clinical information obtained from an independent historian. History obtained from or confirmed by: Other (daughter) External Record Review External record reviewed: Office record Chronic Conditions Patient?s care impacted by: Diabetes Social Determinants Patient?s care significantly limited by Social Determinants of Health including: Problems related to primary support group Discharge Plan Discharge Clinical Impression: Influenza
[2025-07-18 16:51] LABS: NT Pro B Type Natriuretic Pept 644.1 pg/mL (<300)
[2025-07-18 17:51] LABS: Cannabinoid Screen Urine Not Detected (Not Detect)
[2025-07-18 18:01] LABS: Troponin-I High Sensitivity < 2.7 ng/L (<3.5-17.0)
--- NOTE | 2025-07-18 19:45 | PC.NURSE ---
Provider request to trial oxygen ambulation trial. Pt extremely weak, 2A to stand. Oxygen remains > 95%, but pt unable to walk beyond the bedside. Provider Dr. Brandon to be made aware.
--- OUTSIDE RECORDS SUMMARY | 2025-07-18 19:50 | XMS_ITS | Patient Health Record ---
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 Operator Name Role Phone Emi Cantu Primary Care Provider Unavaila ble SILVIANO MENDEZ Unavailable [phone] Allergies Allergen (clinical drug ingredient) Drug/Non Drug [...] Problem Acquired hammer toe of right foot (9082022235127 105) Other hammer toe(s) (acquired), right foot (M20.41) Active confirmed Problem Acquired hammer toe of left foot ([id number] 103) Other hammer toe(s) (acquired), left foot (M20.42) Active confirmed Encounters Encounter Location Date Provider Diagnosis [facility] [address] [address] 03/21/2025 SILVIANO MENDEZ Other hammer toe(s) (acquired), right foot M20.41 ; Other hammer toe(s) (acquired), left foot M20.42 and Diabetic peripheral neuropathy associated with type 2 diabetes mellitus E11.42 [facility] [address] [address] 02/14/2025 SILVIANO MENDEZ Assessments Encounter Date Diagnosis [...] Name:SILVIANO MENDEZ, 09/24/2025 01:00:00 PM, [address] [facility], [place] [address], [place], [address], Insurance Providers Payer Name Payer Address Payer Phone Subscriber Number Group Number Insured Name Patient Relationship to Insured Coverage Start Date Coverage End Date [employer] of [place] [id number] [id number] Kylee Strong Self - patient is the insured Medical (General) History Medical History History ICD Code Anemia Dementia Glaucoma History of DVT of lower extremity History of pulmonary embolism History of stroke Hypertension Hypothyroidism Memory change Peripheral neuropathy Type 2 diabetes mellitus Urinary Frequency Hospitalization History Reason Date(Month/Year) upper respiratory infection 12/2024
--- OUTSIDE RECORDS SUMMARY | 2025-07-18 19:50 | XMS_ITS | Data Portability ---
Author Organization [place] [facility], 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 Pt is a very pleasant woman who was recently diagnosed with a DVT and on day 6 of her eliquis. She has been having discolored urine since initiating eliquis. There has been no progression of symptoms, no other concerning findings to suggest acute blood loss. This was discussed at length with patient. We will send the urine for culture. Pt is having labs drawn tomorrow morning per Dr. Townsend's orders. Unable to access these orders to determine what is being ordered. Pt does not want to have her blood drawn today and possibly again tomorrow. Pt is tolerating activity in the home and there are no red flags to suggest decompensation . At this time will defer labs and continue with plan to have patient drawn tomorrow. We discussed the biggest concern given findings at this time is internal bleeding because of being on eliquis. Pt is dropping her dose down to 5 mg BID tomorrow. This may improve symptoms. Pt and daughter of patient are aware of this and ED precautions reviewed. Pt ambulating in the kitchen at completion of visiti, in NAD, resp easy, speech clear and in good spirits. Not available 07/29/2020 17:22:43 Plan of Treatment Reminders Order Date Submit Date Provider Last Modified By Organization Details Last Modified Time Details Appointments None recorded. Lab urinalysis , dipstick 2019 020 [email or web address] [facility], [address] [place], [address], 0 13:09:17 culture, urine 2019 020 MIRANDA [facility] (Centralized Electronic Ordering - All Locations), Patient Can Go To The Location Of Their Choice, [id number] 0 07:24:49 Referral None recorded. Procedures None recorded. Surgeries None recorded. Imaging None recorded. Medication Orders None recorded. Patient TargetsNo targets recorded. Patient Instructions Encounter Date Encounter Id Patient Instructions Last Modified By Organization Details Last Modified Time 07/29/2020 [id number] [facility] came to your home for evaluation of discolored urine. You are not having any other symptoms. You have had this ever since starting Eliquis about 5 days ago. The urine has blood in it but it does not look infected. It is most likely from this medications. You are decreasing the dose tomorrow which will be good. We sent a urine speciman out to [facility] for a urine culture. You are getting blood checked tomorrow and they are coming to your house to check it. If you experience any other concerns or you have any worsening symptoms, please go to the emergency department for evaluation. [facility]. We cannot always find the exact cause of your symptoms during your initial visit. Please follow up with your primary care provider or specialist to be rechecked or seek medical attention if your symptoms do not go away or get worse. If you develop any new or worsening symptoms and need after hours care, please go to nearest ER and/or call 911. If you have additional concerns or develop a change in your condition between 8am-10pm, please call [facility] at [phone] to help navigate your care. Not available 07/29/2020 13:16:38 Reason for Referral None Reported. Results Created Date Observation Date Name Description Value Unit Range Abnormal Flag Note LastModifiedBy Organization Detail LastModifiedTime 07/29/20 20 07/29/2020 cultu re, urine specimen description CLEAN CATCH (URINE ) Not Available [facility] (Centralized Electronic Ordering - All Locations) Patient Can Go To The Location Of Their Choice, [id number] 07/31/2020 07:24:49 07/29/20 20 07/29/2020 cultu re, urine special requests NONE Not Available [facility] (Centralized Electronic Ordering - All Locations) Patient Can Go To The Location Of Their Choice, [id number] 07/31/2020 07:24:49 07/29/20 20 07/31/2020 cultu re, urine culture <10,00 0 COL/ML abnormal Not Available [facility] (Centralized Electronic Ordering - All Locations) Patient Can Go To The Location Of Their Choice, [id number] 07/31/2020 07:24:49 07/29/20 20 07/31/2020 cultu re, urine report status FINAL 2019 Not Available [facility] (Centralized Electronic Ordering - All Locations) Patient Can Go To The Location Of Their Choice, [id number] 07/31/2020 07:24:49 07/29/20 20 07/29/2020 urina lysis , dipst ick Appearance cloudy Not Available Spr - H ome [address], [place], [address], 07/29/2020 13:05:39 07/29/20 20 07/29/2020 urina lysis , dipst ick Color tea colore d Not Available Spr - Home [address], [place], [address], 07/29/2020 13:05:39 07/29/20 20 07/29/2020 urina lysis , dipst ick Glucose negati ve Not Available Spr - Home [address] [place], [address], 07/29/2020 13:05:39 07/29/20 20 07/29/2020 urina lysis , dipst ick Bilirubin negati ve Not Available Spr - [facility] [address] [place], [address], 07/29/2020 13:05:39 07/29/20 20 07/29/2020 urina lysis , dipst ick Ketones NEG Not Available Spr - Home [address], [place], [address], 07/29/2020 13:05:39 07/29/20 20 07/29/2020 urina lysis , dipst ick Sp. [place] 1.030 Not Available Spr - Home [address] [place], [address], 07/29/2020 13:05:39 07/29/20 20 07/29/2020 urina lysis , dipst ick Blood +++ Not Available Spr - [facility] [address] [place], [address], 07/29/2020 13:05:39 07/29/20 20 07/29/2020 urina lysis , dipst ick pH 5.0 Not Available Spr - [facility] [address] [place], [address], 07/29/2020 13:05:39 07/29/20 20 07/29/2020 urina lysis , dipst ick Protein positi ve Not Available Spr - Home [address] [place], [address], 07/29/2020 13:05:39 07/29/20 20 07/29/2020 urina lysis , dipst ick Urobilirubin negati ve Not Available Spr - [facility] [address] [place], [address], 07/29/2020 13:05:39 07/29/20 20 07/29/2020 urina lysis , dipst ick Nitrites NEG Not Available Spr - [facility] [address] [place], [address], 07/29/2020 13:05:39 07/29/20 20 07/29/2020 urina lysis , dipst ick Leukocytes ++ Not Available Spr - [address] [address] [place], [address], 07/29/2020 13:05:39 Result Notes None recorded. Procedures Surgical History Date Name Laterality Status Provider Name and Address Organization Details Recorded Time cholecystectomy completed MAYA HUDSON NP [address] [place], [address], [place] [facility] 07/29/2020 13:02:37 Imaging Results None recorded. Procedure Notes None recorded. Medical Equipment None Reported. Allergies No known drug allergies Medications Name Sig Start Date Stop Date Status Note LastModified by Organization Details LastModified Time donepezil 5 mg tablet TAKE 1 TABLET BY MOUTH ONCE DAILY AT BEDTIME active Not Available Not Available No t Available donepezil 10 mg tablet TAKE 1 TABLET BY MOUTH ONCE DAILY AT BEDTIME active Not Available Not Available No t Available Levoxyl 75 mcg tablet TAKE 1 TABLET BY MOUTH ONCE DAILY active Not Available Not Available No t Available amlodipine 2.5 mg tablet TAKE 1 TABLET BY MOUTH ONCE DAILY active Not Available Not Available No t Available clopidogrel 75 mg tablet TAKE 1 TABLET BY MOUTH ONCE DAILY active Not Available Not Available No t Available cephalexin 500 mg capsule TAKE 1 CAPSULE BY MOUTH TWICE DAILY FOR 7 DAYS active Not Available Not Available No t Available metformin 1,000 mg tablet TAKE 1 TABLET BY MOUTH TWICE DAILY FOR 90 DAYS active Not Available Not Available No t Available losartan 100 mg tablet TAKE 1 TABLET BY MOUTH ONCE DAILY active Not Available Not Available No t Available rosuvastatin 5 mg tablet TAKE 1 TABLET BY MOUTH ONCE DAILY active Not Available Not Available No t Available BD Ultra-Fine Mini Pen Needle 31 gauge x 3/16 USE 1 UNIT TO INJECT LANTUS ONCE DAILY active Not Available Not Available No t Available Januvia 25 mg tablet TAKE 1 TABLET BY MOUTH ONCE DAILY active Not Available Not Available No t Available Januvia 50 mg tablet TAKE 1 TABLET BY MOUTH ONCE DAILY active Not Available Not Available No t Available Lantus Solostar U-100 Insulin 100 unit/mL (3 mL) subcutaneous pen INJECT 20 UNITS SUBCUTANEOU SLY ONCE DAILY IN THE MORNING active Not Available Not Available Not Available OneTouch Ultra Blue Test Strip USE 1 STRIP TO CHECK GLUCOSE THREE TIMES DAILY active Not Available Not Available No t Available Vitals Date Recorded Heart rate Oxygen saturation Respiratory rate Body temperature Systolic And Diastolic Provider Name and Address Organization Details Last Updated DateTime 0 91 /min 99 % 20 /min 98.3 [degF] 104/60 mm[Hg] Not Available [facility] 0 13:09:19 Social History None recorded. Functional Status None recorded. Mental Status None recorded. Family History Nothing Reported. Medical History Condition Response Diabetes Y Coronary Artery Disease Y Cancer N Asthma N Depression N COPD N High Cholesterol Y Pulmonary Embolism N Hypertension Y Kidney Disease N Gynecological HistoryNo gynecological history recorded. Obstetrics History GPAL:G 0 P 0 0 0 0 Past Encounters Encounter ID Performer Location Encounter Start Date Encounter Closed Date Diagnosis/Indication Diagnosis SNOMED-CT Code Diagnosis ICD10 Code Diagnosis IMO Codes Diagnosis Note [id number] MAYA MCCULLOUGH NP [facility] - [facility] [address] [place] [address] 07/29/2020 12:57:30 08/04/2020 15:09:46 Painless hematuria 750463862 R31.9 Health Concerns Section Related Observation LastModified by Organization Detai ls LastModified Time None Recorded Concern Status LastModified by Organization Details LastModified Time None Recorded Advance Directives Directive None Recorded Payers Insurance Date Sequence Insurance Name Policy Number Policy Jeffries Covered Member ID Jeffries Member ID Guarantor Name 07/28/2020 1 *SELF PAY* Kylee Enriquez [id number] Kylee Enriquez 07/28/2020 1 MEDICARE [place]: [employer] Kylee Enriquez [id number] Kylee Enriquez Notes Date Note Type Note Provider Name and Address Organization Details Recorded Time 07/29/2020 text/html 84 year-old female with history of DM, HTN, HLD, DVT on Eliquis, who calls to the home for funny colored urine. Pt went to the hospital on Jul because of a right swollen lower leg. She was diagnosed with DVT. Pt was started on Eliquis. She was discharged home on Tuesday (delay in getting medications due to holiday). Pt noticed that her urine has been a funny color since getting admitted to the hospital. There has been NO increased in urinary frequency, no dysuria, ,no abdominal pain ,no flank pain. Bowel movements have been normal for her but a bit darker. She is due to decrease her eliquis tomorrow. MAYA MCCULLOUGH NP [address], [place], [address], [place] [facility] 07/29/2020 17:22:51 OBGyn Episode No OBEpisode recorded.
--- NOTE | 2025-07-18 20:04 | PC.NURSE ---
RE: MED REC Pt arrived to ED w/ 2 different meds lists w/ different information. Med rec completed to the best of t/w's ability. Pt pending admission vs. PT/CM.
--- NOTE | 2025-07-18 20:32 | PC.NURSE ---
Pt transferred to hospital bed. Plan for pt to be PT/CM.
--- NOTE | 2025-07-18 21:01 | MHC.CM.ED ---
Pt comes to ED with C/O weakness and malaise. Pt tested positive for FluA. Otherwise, work up negative. Had fever that responding to tylenol. Hospitalist declined admission. Pt had no inpatient hospitalizations in the last month. She has no Q.S. No payor source for STR. Provider and CM spoke with patient's daughter, Mireille Carson. We both explained the 3 midnight rule for medicare. Patient has no funds to private pay. CM explained that facilities may not want to accept a patient with active FLU B. Daughter wants PT evaluation and referrals to home PT. She will call in the morning about the name of the last home PT her mother had in December. CM explained that agencies may not accept her mother secondary to the active Flu diagnosis. Daughter states she will call her mother's PCP, Emi Cantu. Dr. Brandon explained that the hospitalist determines admissions based on admitting criteria. Her mother does not meet criteria for admission. Pt lives with her granddaughter. HCP is not on file. Will hold on referrals pending PT evaluation.
--- NOTE | 2025-07-18 21:14 | MHC.EDTECH ---
Patient put on a hospital bed. 2 assist with standing
--- NOTE | 2025-07-18 21:29 | MHC.EDTECH ---
Patient was changed and repositioned
[2025-07-18] MEDS: Latanoprost 0.005 % Ophth Sol 2.5 ML DROPS 1 DROP EYE-BOTH (21:58)
--- NOTE | 2025-07-18 22:31 | PC.NURSE ---
RN to RN phone report given to Felicia, all questions answered, pt transported to overflow by ED transport in hospital bed.
[2025-07-19] VITALS (11 sets, daily range): BP systolic 114–190; BP diastolic 65–102; PULSE 77–102; RESP 16–20; TEMP 36.6–39.9; O2SAT 93–95; BMI 19.4
[2025-07-19 08:04] LABS: Glucose, Whole Blood 118 mg/dL (60-115)
[2025-07-19] MEDS: Ferrous Sulfate 324 MG TABLET.DR PO (08:50)
[2025-07-19] MEDS: Insulin Glargine,Hum.rec.anlog 100 UNIT/ML 10 ML VIAL 7 UNIT SUBCUT (08:52)
--- NOTE | 2025-07-19 09:18 | PHA.MEDREC ---
Pharmacy Consult ? Medication Reconciliation Pharmacy has completed the medication reconciliation. Patient brought in medication lists from home. Compared with claim history. Spoke with daughter, Mireille, over the phone to confirm medications. She is no longer taking the combination of calcium and D3. Only vitamins OTC she takes is vitamin B12, vitamin D3, vitamin C chewable, and ferrous sulfate (all are taken once daily). Mireille confirmed the losartan was decreased to 50 mg daily. Patient takes 14 units of Tresiba in the morning only if her blood glucose is >130. Patient is not taking amlodipine or Januvia. She last took her medications yesterday morning (did not take Tresiba).
--- NOTE | 2025-07-19 09:31 | MHC.CM.ED ---
Patient remains in ER overflow. Physical therapy eval completed. Rehab is rec. Patient has not had a QHS for Medicare to pay for STR. Patient is uanable to privately pay. No [facility]. Spoke with patient's daughter, Mireille, via telephone at [phone]. Patient has been active with [facility] in the past. Referral made via [facility] to see if they are able to accept patient. Mireille is concerned patient currently has a temp of 103.[address] her way into the ER from [facility]. Kristin AGUILAR aware and has ordered Tylenol for patient. Continue to monitor for d/c needs.
[2025-07-19] MEDS: Lactated Ringers 1,000 ML 999 ML IV (11:31)
--- NOTE | 2025-07-19 11:35 | PC.NURSE ---
Alert and responsive, ate small amount for breakfast. PA aware of elevated temp, new orders obtained, daughter at bedside
[2025-07-19 11:41] LABS: Glucose, Whole Blood 126 mg/dL (60-115)
--- NOTE | 2025-07-19 14:09 | PC.NURSE ---
Alert and responsive, provided with and educated on how to use incentive spirometer. Ate well for lunch, daughter assisted patient to eat. Lungs clear bilaterally, no sob, or wheezing. Denies pain or discomfort. Purewick in place.
--- NOTE | 2025-07-19 14:58 | PC.NURSE ---
awaiting azithromycin from pharmacy
--- NOTE | 2025-07-19 15:15 | PC.NURSE ---
x3 requests made for pharmacy to send azithromycin- pharmacy stating they will send .
--- NOTE | 2025-07-19 17:25 | PC.NURSE ---
Daughter stating patient has not had a bm in x 2 days, requesting JEFF hernandez aware
--- NOTE | 2025-07-19 17:31 | PM.IMHP ---
History of Present Illness Date of Service: 07/19/25 Attending physician on admission: [facility] Chief Complaint: Pneumonia Pt is an 89-year-old female with a PMH significant for dementia, insulin-dependent type 2 diabetes, HTN, HLD, hypothyroidism, hx of DVT 10 years ago, PE 5 years ago, and iron deficiency anemia who initially presented to the emergency room on 07/18 complaining of weakness, generalized malaise, fever, cough, and difficulty breathing. Workup in the ED at that time indicated pt had fever and tested positive for influenza type a. UA was negative UTI. Labs significant for BNP elevated at 644, otherwise overall grossly unremarkable. Pt was placed in physician observation/case management while awaiting placement to [facility]. This afternoon there were concerns that the patient's condition was worsening and so a repeat chest x-ray was ordered which showed the possibility of a developing right lower lobe pneumonia. Pt was given ceftriaxone and azithromycin and request was made for hospital admission for better management on the medical floor. Pt seen and evaluated where she is resting comfortably in bed. Pt is confused with advanced dementia, but reports she feels well. Pt will be admitted to the hospital for generalized weakness in the setting of influenza type a infection with likely superimposed pneumonia. Review of Systems Review of Systems: Yes Unobtainable due to mental status PMFSH Medical History Routine medical exam Anemia Vitamin D deficiency History of stroke History of DVT (deep vein thrombosis) History of pulmonary embolism Peripheral neuropathy Dementia Type 2 diabetes mellitus with hypoglycemia Hypertension B12 deficiency anemia Hypothyroidism Surgical History History of cholecystectomy Social History Household Members: Children Housing: House Do you presently have visiting nurse or other home services: Yes Patient Tobacco Use Status: Never used Tobacco Smoked in Last 30 Days: No e-Cigarette/Vaping Use: Never Used Use of substances other than those prescribed or required for medical reasons: No Currently Displaying Signs/Symptoms of Drug Intoxication Withdrawal: No Have you been hit, kicked, punched, or otherwise hurt by someone within the past year? If so, by whom?: No Do you feel safe in your current relationship?: Yes Is there a partner from a previous relationship who is making you feel unsafe now?: No Are you made to feel afraid or neglected: No Advance Directives: No Advance Directives Information Provided: No Do you have a plan to hurt others: No Plan Recently lost weight without trying: No Nutrition Risks: No Nutritional Risk Patient : No : No Poor oral hygiene: No service: No Current occupational status: retired [employer] Allergies Allergy/AdvReac Type Severity Reaction Status Date / Time No Known Allergies Allergy Verified 07/18/25 15:57 Active Medications: Current Medications Acetaminophen (Acetaminophen 325 Mg Tablet) 650 mg PO QID PRN PRN Reason: Fever Last Admin: 07/19/25 10:23 Dose: 650 mg Ascorbic Acid (Ascorbic Acid 250 Mg Tablet) 125 mg PO DAILY [facility] Last Admin: 07/19/25 08:50 Dose: 125 mg Atorvastatin Calcium (Atorvastatin Calcium 20 Mg Tablet) 20 mg PO BEDTIME [facility] Clopidogrel Bisulfate (Clopidogrel Bisulfate 75 Mg Tablet) 75 mg PO DAILY [facility] Last Admin: 07/19/25 08:50 Dose: 75 mg Cyanocobalamin (Cyanocobalamin (Vitamin B-12) 500 Mcg Tablet) 2,500 mcg PO DAILY [facility] Donepezil HCl (Donepezil Hcl 10 Mg Tablet) 10 mg PO BEDTIME [facility] Last Admin: 07/18/25 21:58 Dose: 10 mg Enoxaparin Sodium (Enoxaparin Sodium 40 Mg/0.4 Ml Syringe) 40 mg SUBCUT Q24H [facility] Last Admin: 07/19/25 12:40 Dose: 40 mg Ferrous Sulfate (Ferrous Sulfate 324 Mg Tablet.Dr) 324 mg PO DAILY [facility] Last Admin: 07/19/25 08:50 Dose: 324 mg Insulin Glargine (Insulin Glargine,Hum.Rec.Anlog 100 Unit/Ml 10 Ml Vial) 10 unit SUBCUT DAILY@0900 PRN PRN Reason: BG >130 Latanoprost (Latanoprost 0.005 % Ophth Rupinder 2.5 Ml Drops) 1 drop EYE-BOTH BEDTIME [facility] Last Admin: 07/18/25 21:58 Dose: 1 drop Levothyroxine Sodium (Levothyroxine Sodium 75 Mcg Tablet) 75 mcg PO DAILY [facility] Last Admin: 07/19/25 08:49 Dose: 75 mcg Losartan Potassium (Losartan Potassium 50 Mg Tablet) 50 mg PO DAILY [facility]; Protocol Memantine (Memantine Hcl 10 Mg Tablet) 10 mg PO BID [facility] Last Admin: 07/19/25 08:51 Dose: 10 mg Multivitamins/Vitamin C (Multivitamin Tablet) 1 tab PO DAILY [facility] Last Admin: 07/19/25 08:50 Dose: 1 tab Vitamin D (Cholecalciferol (Vitamin D3) 25 Mcg Tablet) 25 mcg PO DAILY [facility] Last Admin: 07/19/25 08:50 Dose: 25 mcg Home Medications ?Medication ?Instructions ?Recorded ?Confirmed ?Last Taken ?Type ascorbic acid (vitamin C) 125 mg 125 mg PO DAILY 05/24/25 07/18/25 07/18/25 History chewable tablet cholecalciferol (vitamin D3) 25 25 mcg PO DAILY 05/24/25 07/19/25 07/18/25 History mcg (1,000 unit) capsule insulin degludec 100 unit/mL (3 14 unit subcut DAILY PRN BG >130 05/24/25 07/19/25 Unknown History mL) subcutaneous pen (Tresiba FlexTouch U-100 insulin) latanoprost 0.005 % eye drops 1 drp ophthalmic (eye) BEDTIME 05/24/25 07/18/25 Unknown History losartan 50 mg tablet 50 mg PO DAILY 05/24/25 07/19/25 07/18/25 History cyanocobalamin (vitamin B-12) 2,500 mcg PO DAILY 07/19/25 07/19/25 07/18/25 History 2,500 mcg tablet rosuvastatin 5 mg tablet 5 mg PO BEDTIME 07/19/25 07/19/25 Unknown History Physical Exam Vital Signs and Narrative: Vital Signs: Last Vital Signs Temp 98.1 F 07/19/25 15:47 Pulse 84 07/19/25 15:47 Resp 20 07/19/25 15:47 BP 143/71 H 07/19/25 15:47 Pulse Ox 94 07/19/25 15:47 O2 Del Method Room Air 07/19/25 15:47 BMI result Body Mass Index 19.4 General: AOx1, no acute distress Resp: CTA bilaterally CVS: S1, S2, RRR GI: +BS, NT, no distention Skin: Warm, dry Neuro: Cranial nerves II-XII grossly intact bilaterally. Motor grossly intact bilaterally Musculoskeletal: Generalized weakness Extremities: No edema Psych: Pleasantly confused Results Labs 07/18/25 16:09 07/18/25 16:09 Labs: Laboratory Results - last 24 hr 07/18/25 07/19/25 07/19/25 16:09 08:00 11:37 POC Glucose 118 H 126 H Troponin I High Sens < 2.7 Urine Opiates Screen Not Detected Ur Buprenorphine Scrn Not Detected Ur Oxycodone Screen Not Detected Urine Methadone Screen Not Detected Urine Fentanyl Screen Not Detected Ur Barbiturates Screen Not Detected Ur Phencyclidine Scrn Not Detected Ur Amphetamines Screen Not Detected U Benzodiazepines Scrn Not Detected Urine Cocaine Screen Not Detected U Marijuana (THC) Screen Not Detected Imaging Radiologist's Impressions: Impressions Chest X-Ray 07/19/25 12:27 IMPRESSION: Findings suggesting developing left lower lobe pneumonia in the appropriate clinical setting. Electronically signed by: Gene Guajardo MD 07/19/2025 12:42 PM [facility] Assessment and Plan (1) Influenza: Status: Acute (2) Generalized weakness: Status: Acute Plan Pt is an 89-year-old female with a PMH significant for dementia, insulin-dependent type 2 diabetes, HTN, HLD, hypothyroidism, hx of DVT 10 years ago, PE 5 years ago, and iron deficiency anemia who initially presented to the emergency room on 07/18 complaining of weakness, generalized malaise, fever, cough, and difficulty breathing. Pt will be admitted to the hospital for generalized weakness in the setting of influenza type a infection with likely superimposed pneumonia. Generalized weakness in the setting of acute influenza type A infection with superimposed Flu+, repeat CXR today with possible early developing pneumonia Sepsis unlikely: fever and tachycardia likely secondary to influenza Tamiflu x5 days, empiric ceftriaxone and azithromycin, started 07/19 Follow cultures PT consult for likely eventual STR HTN Continue losartan BP elevated, consider adding additional agent HLD Continue statin Hx of DVT/PE ?PCP prescribing Plavix? Insulin dependent diabetes SSI, diabetic diet Iron deficiency anemia Continue iron supplementation Dementia Continue donepezil, mematine DNR/DNI, verified with HCP/daughter at beside Attending:?Dr. Hercules DVT Prophylaxis: Lovenox Pt will require a hospitalization of at least two nights for treatment of?generalized weakness in the setting of influenza A infection with superimposed pneumonia. Quality Stroke Does the patient have a stroke diagnosis?: No VTE Prior VTE?: Yes VTE Risk Level:: Medical - moderate - high VTE Device Contraindication: Treatment Not Indicated VTE Drug Contraindication: N/A - Med Ordered
--- NOTE | 2025-07-19 18:12 | PC.NURSE ---
per pa stop compression
[2025-07-19 21:01] LABS: Glucose, Whole Blood 182 mg/dL (60-115)
[2025-07-20 03:25] VITALS: BP 137/68; PULSE 80; RESP 17; TEMP 36.8; O2SAT 95
[2025-07-20 07:24] VITALS: BP 117/56; PULSE 76; RESP 16; TEMP 36.4; O2SAT 93
[2025-07-20 07:33] LABS: Glucose, Whole Blood 87 mg/dL (60-115)
[2025-07-20] MEDS: Ferrous Sulfate 324 MG TABLET.DR PO (08:40)
[2025-07-20 11:22] LABS: Glucose, Whole Blood 126 mg/dL (60-115)
--- NOTE | 2025-07-20 11:59 | HO.PM.IMPN ---
Subjective Subjective Date of Service: 07/20/25 Interval History: Pt seen and evaluated during morning rounds where she is resting comfortably in bed Advanced dementia, unable to provide meaningful HPI Has remained afebrile, not hypoxic No acute events overnight Review of Systems Review of Systems: Yes Unobtainable due to mental status Physical Exam Exam: Exam: General: AOx1, no acute distress Resp: CTA bilaterally CVS: S1, S2, RRR GI: +BS, NT, no distention Skin: Warm, dry Neuro: Cranial nerves II-XII grossly intact bilaterally. Motor grossly intact bilaterally Musculoskeletal: Generalized weakness Extremities: No edema Psych: Pleasantly confused Vital Signs: Vital Signs: Last Vital Signs Temp 97.6 F 07/20/25 07:24 Pulse 76 07/20/25 07:24 Resp 16 07/20/25 07:24 BP 117/56 L 07/20/25 07:24 Pulse Ox 93 07/20/25 07:24 O2 Del Method Room Air 07/20/25 07:24 BMI result Body Mass Index 19.4 Objective Data Active Medications Acetaminophen (Acetaminophen 325 Mg Tablet) 650 mg PO QID PRN PRN Reason: Fever Last Admin: 07/19/25 10:23 Dose: 650 mg Documented By: ROBERTO CARLOS Ascorbic Acid (Ascorbic Acid 250 Mg Tablet) 125 mg PO DAILY [facility] OF [facility] Last Admin: 07/20/25 08:38 Dose: 125 mg Documented By: ISAAC Atorvastatin Calcium (Atorvastatin Calcium 20 Mg Tablet) 20 mg PO BEDTIME ON LICENSE OF [facility] Clopidogrel Bisulfate (Clopidogrel Bisulfate 75 Mg Tablet) 75 mg PO DAILY [facility] Last Admin: 07/20/25 08:39 Dose: 75 mg Documented By: ISAAC Cyanocobalamin (Cyanocobalamin (Vitamin B-12) 500 Mcg Tablet) 2,500 mcg PO DAILY [facility] Last Admin: 07/20/25 08:40 Dose: 2,500 mcg Documented By: ISAAC Donepezil HCl (Donepezil Hcl 10 Mg Tablet) 10 mg PO BEDTIME [facility] Last Admin: 07/19/25 21:20 Dose: 10 mg Documented By: MARTHA Enoxaparin Sodium (Enoxaparin Sodium 40 Mg/0.4 Ml Syringe) 40 mg SUBCUT Q24H [facility] OF [facility] Last Admin: 07/19/25 12:40 Dose: 40 mg Documented By: RUMA Ferrous Sulfate (Ferrous Sulfate 324 Mg Tablet.) 324 mg PO DAILY [facility] Last Admin: 07/20/25 08:40 Dose: 324 mg Documented By: ISAAC Insulin Glargine (Insulin Glargine,Hum.Rec.Anlog 100 Unit/Ml 10 Ml Vial) 10 unit SUBCUT DAILY@0900 PRN PRN Reason: BG >130 Latanoprost (Latanoprost 0.005 % Ophth Rupinder 2.5 Ml Drops) 1 drop EYE-BOTH BEDTIME ON [facility] Last Admin: 07/19/25 21:21 Dose: Not Given Documented By: ODRISM Non-Admin Reason: Med Not Available Levothyroxine Sodium (Levothyroxine Sodium 75 Mcg Tablet) 75 mcg PO DAILY [facility] Last Admin: 07/20/25 08:39 Dose: 75 mcg Documented By: ISAAC Losartan Potassium (Losartan Potassium 50 Mg Tablet) 50 mg PO DAILY [facility]; Protocol Last Admin: 07/20/25 08:40 Dose: 50 mg Documented By: ISAAC Memantine (Memantine Hcl 10 Mg Tablet) 10 mg PO BID [facility] Last Admin: 07/20/25 08:38 Dose: 10 mg Documented By: ISAAC Multivitamins/Vitamin C (Multivitamin Tablet) 1 tab PO DAILY [facility] Last Admin: 07/20/25 08:38 Dose: 1 tab Documented By: ISAAC Oseltamivir Phosphate (Oseltamivir Phosphate 30 Mg Capsule) 30 mg PO Q12H ON LICENSE OF [facility] Stop: 07/24/25 21:01 Last Admin: 07/20/25 08:40 Dose: 30 mg Documented By: ISAAC Polyethylene Glycol (Polyethylene Glycol 3350 17 Gm Powd.Pack) 17 gm PO DAILY PRN PRN Reason: Constipation Last Admin: 07/19/25 18:19 Dose: 17 gm Documented By: RUMA Vitamin D (Cholecalciferol (Vitamin D3) 25 Mcg Tablet) 25 mcg PO DAILY [facility] Last Admin: 07/20/25 08:38 Dose: 25 mcg Documented By: ISAAC Labs 07/18/25 16:09 07/18/25 16:09 Labs: Laboratory Results - last 24 hr 07/19/25 07/20/25 07/20/25 20:57 07:23 11:18 POC Glucose 182 H 87 126 H Microbiology Microbiology Results: Microbiology 07/18/25 Unknown Urine Culture - Final Urine Catheterized No growth. 07/18/25 16:09 Blood Culture - Preliminary Blood - Venous No growth after 24 hours. 07/18/25 16:09 Blood Culture - Preliminary Blood - Venous No growth after 24 hours. Assessment and Plan (1) Influenza: Status: Acute Plan Pt is an 89-year-old female with a PMH significant for dementia, insulin-dependent type 2 diabetes, HTN, HLD, hypothyroidism, hx of DVT 10 years ago, PE 5 years ago, and iron deficiency anemia who initially presented to the emergency room on 07/18 complaining of weakness, generalized malaise, fever, cough, and difficulty breathing. Pt will be admitted to the hospital for generalized weakness in the setting of influenza type a infection with likely superimposed pneumonia. Generalized weakness in the setting of acute influenza type A infection with superimposed Flu+, repeat CXR today with possible early developing pneumonia Sepsis unlikely: fever and tachycardia secondary to influenza Tamiflu x5 days, empiric ceftriaxone and azithromycin, started 07/19 Follow blood cultures PT consult for likely eventual STR HTN Continue losartan BP elevated, consider adding additional agent HLD Continue statin Hx of DVT/PE ?PCP prescribing Plavix? Insulin dependent diabetes SSI, diabetic diet Iron deficiency anemia Continue iron supplementation Dementia Continue donepezil, mematine DNR/DNI, verified with HCP/daughter at beside Attending:?Dr. Hercules DVT Prophylaxis: Lovenox Pt will require a hospitalization of at least two nights for treatment of?generalized weakness in the setting of influenza A infection with superimposed pneumonia. Quality Stroke Does the patient have a stroke diagnosis?: No VTE Prior VTE?: Yes VTE Risk Level:: Medical - moderate - high VTE Device Contraindication: Treatment Not Indicated VTE Drug Contraindication: N/A - Med Ordered
[2025-07-20 16:00] VITALS: BP 134/60; PULSE 75; RESP 18; TEMP 36.4; O2SAT 95
[2025-07-20] MEDS: 0.9 % Sodium Chloride Flush 3 ML SYRINGE IVFLUSH ×2 (16:12→21:29)
[2025-07-20 16:21] LABS: Glucose, Whole Blood 133 mg/dL (60-115)
[2025-07-20 20:00] VITALS: BP 128/67; PULSE 66; RESP 18; TEMP 36.9; O2SAT 94
[2025-07-20 20:49] LABS: Glucose, Whole Blood 124 mg/dL (60-115)
[2025-07-20] MEDS: Latanoprost 0.005 % Ophth Sol 2.5 ML DROPS 1 DROP EYE-BOTH (21:29)
[2025-07-21 04:00] VITALS: BP 125/66; PULSE 73; RESP 17; TEMP 36.4; O2SAT 94
[2025-07-21 07:23] LABS: Hematocrit 33.0 % (37.0-47.0); Hemoglobin 10.9 g/dl (12.0-16.0); Mean Corpuscular HGB Conc 33.0 g/dl (31.0-35.0); Mean Corpuscular Hemoglobin 30.7 pg (27.0-33.0); Mean Corpuscular Volume 93.0 fL (80.0-98.0); NRBC Abs Auto 0.000 X10*3/uL (0.0-0.012); NRBC Pct Auto 0.0 /100WBC (0.0-0.2); Platelet Count 129 X10*3/uL (160-400); Red Blood Count 3.55 X10*6/uL (4.20-5.50); White Blood Count 4.2 X10*3/uL (4.8-10.8)
[2025-07-21 07:32] LABS: Anion Gap 10 (12-20); Blood Urea Nitrogen 11 mg/dL (9-16); Calcium 8.6 mg/dL (8.4-10.2); Carbon Dioxide 25 mmol/L (22-29); Chloride 109 mmol/L (96-108); Creatinine Clr Calc Pharmacy 54.9; Estimated Glomerular Filt Rate > 60; Potassium 3.9 mmol/L (3.3-5.1); Sodium 140 mmol/L (135-145)
[2025-07-21 07:53] LABS: Glucose, Whole Blood 100 mg/dL (60-115)
[2025-07-21 07:57] VITALS: BP 119/67; PULSE 73; RESP 18; TEMP 36.8; O2SAT 97
--- NOTE | 2025-07-21 08:41 | MHC.CM.PN ---
Addendum entered by Deedee Selby 07/22/25 08:12: DAUGHTER AWARE [facility] IS NOT ACCEPTING PT SHE IS AGREEABLE TO REFERRALS TO [facility], BUT ALSO WOULD LIKE [facility] TRIED AGAIN. SHE SAYS SHE WILL MAKE SOME CALLS SO HOPES THEY WILL OFFER. Original Note: CM SPOKE TO PTS DAUGHTER/HCP, MEJIA [phone] SHE REPORTS THE PT LIVES ALONE, BUT THEN CONFIRMS HER DAUGHTER ACTUALLY LIVES WITH THE PT, BUT SHE IS NOT HOME MUCH OF THE TIME SHE SAYS THE PT HAS A PHYSICAL THERAPY NURSE ONE HOUR EACH MORNING AND 3 HOURS IN THE EVENING AND FAMILY SUPPLEMENTS CARE NEEDED PT HAS A CANE BUT PRIMARILY USES A WALKER COPY OF HCP ON FILE WITH [facility] [place] PCP OFFICE PER DAUGHTERS REPORT - COPY TO BE REQUESTED TUESDAY PCP: [facility] DELIVERED DCP: STR IS THE GOAL, [facility] IS PREFERRED, DAUGHTER DECLINING TO MAKE A SECOND CHOICE SHE WILL RESEARCH MORE REHABS ON TUESDAY AND HAVE ALTERNATE PREFERENCES BY TUESDAY MORNING PT WILL NEED BLS TRANSPORT
[2025-07-21] MEDS: Ferrous Sulfate 324 MG TABLET.DR PO (08:57)
[2025-07-21] MEDS: 0.9 % Sodium Chloride Flush 3 ML SYRINGE IVFLUSH ×3 (09:04→20:42)
--- NOTE | 2025-07-21 10:56 | HO.PM.IMPN ---
Subjective Subjective Date of Service: 07/21/25 Interval History: No acute events overnight Seen and evaluated during morning rounds where she is resting comfortably in bed and eating her breakfast Has been stable, afebrile No SOB or hypoxia Waiting on STR placement Pleasantly confused Review of Systems Review of Systems: Yes Unobtainable due to mental status Physical Exam Exam: Exam: General: AOx1, no acute distress Resp: CTA bilaterally CVS: S1, S2, RRR GI: +BS, NT, no distention Skin: Warm, dry Neuro: Cranial nerves II-XII grossly intact bilaterally. Motor grossly intact bilaterally Musculoskeletal: Generalized weakness Extremities: No edema Psych: Pleasantly confused Vital Signs: Vital Signs: Last Vital Signs Temp 98.2 F 07/21/25 07:57 Pulse 73 07/21/25 07:57 Resp 18 07/21/25 07:57 BP 119/67 07/21/25 07:57 Pulse Ox 97 07/21/25 07:57 O2 Del Method Room Air 07/21/25 07:57 BMI result Body Mass Index 19.4 Objective Data Active Medications Acetaminophen (Acetaminophen 325 Mg Tablet) 650 mg PO QID PRN PRN Reason: Fever Last Admin: 07/19/25 10:23 Dose: 650 mg Documented By: ROBERTO CARLOS Ascorbic Acid (Ascorbic Acid 250 Mg Tablet) 125 mg PO DAILY [facility] Last Admin: 07/21/25 08:56 Dose: 125 mg Documented By: ISAAC Atorvastatin Calcium (Atorvastatin Calcium 20 Mg Tablet) 20 mg PO BEDTIME [facility] Last Admin: 07/20/25 21:29 Dose: 20 mg Documented By: MARTHA Calcium Carbonate (Calcium Carbonate 750 Mg Tab.Chew) 750 mg PO Q4H PRN PRN Reason: Heartburn Clopidogrel Bisulfate (Clopidogrel Bisulfate 75 Mg Tablet) 75 mg PO DAILY [facility] Last Admin: 07/21/25 08:57 Dose: 75 mg Documented By: ISAAC Cyanocobalamin (Cyanocobalamin (Vitamin B-12) 500 Mcg Tablet) 2,500 mcg PO DAILY [facility] Last Admin: 07/21/25 08:55 Dose: 2,500 mcg Documented By: ISAAC Donepezil HCl (Donepezil Hcl 10 Mg Tablet) 10 mg PO BEDTIME [facility] Last Admin: 07/20/25 21:29 Dose: 10 mg Documented By: MARTHA Enoxaparin Sodium (Enoxaparin Sodium 40 Mg/0.4 Ml Syringe) 40 mg SUBCUT Q24H [facility] Last Admin: 07/20/25 12:01 Dose: 40 mg Documented By: ISAAC Ferrous Sulfate (Ferrous Sulfate 324 Mg Tablet.Dr) 324 mg PO DAILY [facility] Last Admin: 07/21/25 08:57 Dose: 324 mg Documented By: ISAAC Guaifenesin/Dextromethorphan (Guaifenesin Dm 200/20/10 Ml 10 Ml Syrup) 10 ml PO Q4H PRN PRN Reason: Cough Azithromycin 500 mg/ Sodium (Chloride) 250 mls @ 125 mls/hr IV Q24H [facility] Last Admin: 07/21/25 09:31 Dose: 125 mls/hr Documented By: ISAAC Ceftriaxone Sodium 1 gm/ (Sodium Chloride) 50 mls @ 100 mls/hr IV Q24H [facility] Last Infusion: 07/21/25 09:34 Dose: Infused Documented By: ISAAC Insulin Glargine (Insulin Glargine,Hum.Rec.Anlog 100 Unit/Ml 10 Ml Vial) 10 unit SUBCUT DAILY@0900 PRN PRN Reason: BG >130 Latanoprost (Latanoprost 0.005 % Ophth Rupinder 2.5 Ml Drops) 1 drop EYE-BOTH BEDTIME [facility] Last Admin: 07/20/25 21:29 Dose: 1 drop Documented By: MARTHA Levothyroxine Sodium (Levothyroxine Sodium 75 Mcg Tablet) 75 mcg PO DAILY [facility] Last Admin: 07/21/25 08:57 Dose: 75 mcg Documented By: ISAAC Losartan Potassium (Losartan Potassium 50 Mg Tablet) 50 mg PO DAILY [facility]; Protocol Last Admin: 07/21/25 08:56 Dose: 50 mg Documented By: ISAAC Magnesium Hydroxide (Milk Of Magnesia 30 Ml Oral.Susp) 30 ml PO DAILY PRN PRN Reason: Constipation Melatonin (Melatonin 3 Mg Tablet) 6 mg PO BEDTIME PRN PRN Reason: Insomnia Memantine (Memantine Hcl 10 Mg Tablet) 10 mg PO BID [facility] Last Admin: 07/21/25 08:57 Dose: 10 mg Documented By: ISAAC Multivitamins/Vitamin C (Multivitamin Tablet) 1 tab PO DAILY [facility] Last Admin: 07/21/25 08:56 Dose: 1 tab Documented By: ISAAC Ondansetron HCl (Ondansetron Hcl 4 Mg/2 Ml Vial) 4 mg IVPUSH Q8H PRN PRN Reason: Nausea and Vomiting Oseltamivir Phosphate (Oseltamivir Phosphate 30 Mg Capsule) 30 mg PO Q12H [facility] Stop: 07/24/25 21:01 Last Admin: 07/21/25 08:57 Dose: 30 mg Documented By: ISAAC Polyethylene Glycol (Polyethylene Glycol 3350 17 Gm Powd.Pack) 17 gm PO DAILY PRN PRN Reason: Constipation Last Admin: 07/19/25 18:19 Dose: 17 gm Documented By: RUMA Sodium Chloride (0.9 % Sodium Chloride Flush 3 Ml Syringe) 3 ml IVFLUSH QSHIFT [facility] Last Admin: 07/21/25 09:04 Dose: 3 ml Documented By: ISAAC Vitamin D (Cholecalciferol (Vitamin D3) 25 Mcg Tablet) 25 mcg PO DAILY [facility] Last Admin: 07/21/25 08:57 Dose: 25 mcg Documented By: ISAAC Labs 07/21/25 05:47 07/21/25 05:47 Labs: Laboratory Results - last 24 hr 07/20/25 07/20/25 07/20/25 11:18 16:16 20:44 MCV MCH MCHC RDW Plt Count MPV Absolute Nucleated RBC Nucleated RBC % (auto) Anion Gap Estim Creat Clear Calc Estimated GFR POC Glucose 126 H 133 H 124 H Random Glucose Calcium 07/21/25 07/21/25 05:47 07:46 MCV 93.0 MCH 30.7 MCHC 33.0 RDW 13.2 Plt Count 129 L MPV 10.8 Absolute Nucleated RBC 0.000 Nucleated RBC % (auto) 0.0 Anion Gap 10 L Estim Creat Clear Calc 54.9 Estimated GFR > 60 POC Glucose 100 Random Glucose 111 Calcium 8.6 Microbiology Microbiology Results: Microbiology 07/18/25 16:09 Blood Culture - Preliminary Blood - Venous No growth after 48 hours. 07/18/25 16:09 Blood Culture - Preliminary Blood - Venous No growth after 48 hours. 07/18/25 Unknown Urine Culture - Final Urine Catheterized No growth. Assessment and Plan (1) Influenza: Status: Acute Plan Pt is an 89-year-old female with a PMH significant for dementia, insulin-dependent type 2 diabetes, HTN, HLD, hypothyroidism, hx of DVT 10 years ago, PE 5 years ago, and iron deficiency anemia who initially presented to the emergency room on 07/18 complaining of weakness, generalized malaise, fever, cough, and difficulty breathing. Pt will be admitted to the hospital for generalized weakness in the setting of influenza type a infection with likely superimposed pneumonia. Generalized weakness in the setting of acute influenza type A infection with superimposed Flu+, repeat CXR today with possible early developing pneumonia Sepsis unlikely: fever and tachycardia secondary to influenza Tamiflu x5 days, empiric ceftriaxone and azithromycin, started 07/19 UA culture negative; BCx negative after 48h PT recommends STR HTN Continue losartan BP elevated, consider adding additional agent HLD Continue statin Hx of DVT/PE ?PCP prescribing Plavix? Insulin dependent diabetes SSI, diabetic diet Iron deficiency anemia Continue iron supplementation Dementia Continue donepezil, mematine DNR/DNI, verified with HCP/daughter at beside Attending:?Dr. Hercules DVT Prophylaxis: Lovenox Pt requires continued hospitalization for treatment of?generalized weakness in the setting of influenza A infection with superimposed pneumonia. Pt is now awaiting short-term rehab placement. Quality Stroke Does the patient have a stroke diagnosis?: No VTE Prior VTE?: Yes VTE Risk Level:: Medical - moderate - high VTE Device Contraindication: Treatment Not Indicated VTE Drug Contraindication: N/A - Med Ordered
[2025-07-21 11:31] LABS: Glucose, Whole Blood 191 mg/dL (60-115)
[2025-07-21] MEDS: guaiFENesin DM 200/20/10 ML 10 ML SYRUP PO (15:25)
[2025-07-21 15:41] VITALS: BP 125/64; PULSE 71; RESP 14; TEMP 36.7; O2SAT 96
[2025-07-21 16:19] LABS: Glucose, Whole Blood 179 mg/dL (60-115)
[2025-07-21 20:00] VITALS: BP 160/71; PULSE 89; RESP 18; TEMP 36.8; O2SAT 97
[2025-07-21 20:24] LABS: Glucose, Whole Blood 204 mg/dL (60-115)
[2025-07-21] MEDS: Latanoprost 0.005 % Ophth Sol 2.5 ML DROPS 1 DROP EYE-BOTH (20:43)
[2025-07-22 03:30] VITALS: BP 132/80; PULSE 77; RESP 18; TEMP 36.8; O2SAT 94
[2025-07-22 07:08] VITALS: BP 144/69; PULSE 75; RESP 16; TEMP 36.2; O2SAT 92
[2025-07-22 07:20] LABS: Glucose, Whole Blood 129 mg/dL (60-115)
--- NOTE | 2025-07-22 07:21 | PM.IMPN ---
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 Pt will be admitted to the hospital for generalized weakness in the setting of influenza type a infection with likely superimposed pneumonia. Generalized weakness in the setting of acute influenza type A infection with superimposed bacterial pneumonia Sepsis source: fever and tachycardia secondary to influenza with superimposed bacterial pneumonia Tamiflu x5 days, we will switch antibiotics to p.o. Augmentin and azithromycin 5 day course PT recommends STR -daughter still deciding on the rehab and hence the delay in discharge today HTN Continue losartan HLD Continue statin Hx of DVT/PE unclear course- will defer to PCP for OP mx -thus far resp to flu rx, non hypoxic on RA wll get usg of legs to r/o DVT Insulin dependent diabetes SSI, diabetic diet Iron deficiency anemia Continue iron supplementation Dementia Continue donepezil, mematine DNR/DNI, verified with HCP/daughter at beside DVT Prophylaxis: Lovenox Pt requires continued hospitalization for treatment of generalized weakness in the setting of influenza A infection with superimposed pneumonia. Pt is awaiting short-term rehab placement daughter still deciding on the rehab and hence the delay in discharge today- likely will get Auth pending approval levi . Subjective Subjective Date of Service: 07/22/25 Interval History: Medically optimized See case management note regarding short-term rehab authorization Review of Systems Review of Systems: Yes all other systems are reviewed and are negative Physical Exam Exam: Exam: General: AOx1, no acute distress Resp: CTA bilaterally CVS: S1, S2, RRR GI: +BS, NT, no distention Musculoskeletal: Generalized weakness Psych: Pleasantly confused Vital Signs: Vital Signs: Last Vital Signs Temp 97.1 F 07/22/25 07:08 Pulse 75 07/22/25 07:08 Resp 16 07/22/25 07:08 BP 144/69 H 07/22/25 07:08 Pulse Ox 92 07/22/25 07:08 O2 Del Method Room Air 07/22/25 07:08 BMI result Body Mass Index 19.4 Objective Data Current Medications Acetaminophen (Acetaminophen 325 Mg Tablet) 650 mg PO QID PRN PRN Reason: Fever Last Admin: 07/19/25 10:23 Dose: 650 mg Ascorbic Acid (Ascorbic Acid 250 Mg Tablet) 125 mg PO DAILY [facility] Last Admin: 07/21/25 08:56 Dose: 125 mg Atorvastatin Calcium (Atorvastatin Calcium 20 Mg Tablet) 20 mg PO BEDTIME PREETI Last Admin: 07/21/25 20:42 Dose: 20 mg Calcium Carbonate (Calcium Carbonate 750 Mg Tab.Chew) 750 mg PO Q4H PRN PRN Reason: Heartburn Clopidogrel Bisulfate (Clopidogrel Bisulfate 75 Mg Tablet) 75 mg PO DAILY [facility] Last Admin: 07/21/25 08:57 Dose: 75 mg Cyanocobalamin (Cyanocobalamin (Vitamin B-12) 500 Mcg Tablet) 2,500 mcg PO DAILY [facility] Last Admin: 07/21/25 08:55 Dose: 2,500 mcg Donepezil HCl (Donepezil Hcl 10 Mg Tablet) 10 mg PO BEDTIME [facility] Last Admin: 07/21/25 20:42 Dose: 10 mg Enoxaparin Sodium (Enoxaparin Sodium 40 Mg/0.4 Ml Syringe) 40 mg SUBCUT Q24H [facility] Last Admin: 07/21/25 11:43 Dose: 40 mg Ferrous Sulfate (Ferrous Sulfate 324 Mg Tablet.Dr) 324 mg PO DAILY [facility] Last Admin: 07/21/25 08:57 Dose: 324 mg Guaifenesin/Dextromethorphan (Guaifenesin Dm 200/20/10 Ml 10 Ml Syrup) 10 ml PO Q4H PRN PRN Reason: Cough Last Admin: 07/21/25 15:25 Dose: 10 ml Azithromycin 500 mg/ Sodium (Chloride) 250 mls @ 125 mls/hr IV Q24H [facility] Last Infusion: 07/21/25 11:39 Dose: Infused Ceftriaxone Sodium 1 gm/ (Sodium Chloride) 50 mls @ 100 mls/hr IV Q24H [facility] Last Infusion: 07/21/25 09:34 Dose: Infused Insulin Glargine (Insulin Glargine,Hum.Rec.Anlog 100 Unit/Ml 10 Ml Vial) 10 unit SUBCUT DAILY@0900 PRN PRN Reason: BG >130 Latanoprost (Latanoprost 0.005 % Ophth Rupinder 2.5 Ml Drops) 1 drop EYE-BOTH BEDTIME [facility] Last Admin: 07/21/25 20:43 Dose: 1 drop Levothyroxine Sodium (Levothyroxine Sodium 75 Mcg Tablet) 75 mcg PO DAILY@0600 [facility] Last Admin: 07/22/25 05:53 Dose: 75 mcg Losartan Potassium (Losartan Potassium 50 Mg Tablet) 50 mg PO DAILY [facility]; Protocol Last Admin: 07/21/25 08:56 Dose: 50 mg Magnesium Hydroxide (Milk Of Magnesia 30 Ml Oral.Susp) 30 ml PO DAILY PRN PRN Reason: Constipation Melatonin (Melatonin 3 Mg Tablet) 6 mg PO BEDTIME PRN PRN Reason: Insomnia Memantine (Memantine Hcl 10 Mg Tablet) 10 mg PO BID [facility] Last Admin: 07/21/25 20:42 Dose: 10 mg Multivitamins/Vitamin C (Multivitamin Tablet) 1 tab PO DAILY [facility] Last Admin: 07/21/25 08:56 Dose: 1 tab Ondansetron HCl (Ondansetron Hcl 4 Mg/2 Ml Vial) 4 mg IVPUSH Q8H PRN PRN Reason: Nausea and Vomiting Oseltamivir Phosphate (Oseltamivir Phosphate 30 Mg Capsule) 30 mg PO Q12H [facility] Stop: 07/24/25 21:01 Last Admin: 07/21/25 20:42 Dose: 30 mg Polyethylene Glycol (Polyethylene Glycol 3350 17 Gm Powd.Pack) 17 gm PO DAILY PRN PRN Reason: Constipation Last Admin: 07/19/25 18:19 Dose: 17 gm Sodium Chloride (0.9 % Sodium Chloride Flush 3 Ml Syringe) 3 ml IVFLUSH QSHIFT [facility] Last Admin: 07/21/25 20:42 Dose: 3 ml Vitamin D (Cholecalciferol (Vitamin D3) 25 Mcg Tablet) 25 mcg PO DAILY [facility] Last Admin: 07/21/25 08:57 Dose: 25 mcg Labs 07/21/25 05:47 07/21/25 05:47 Labs: Laboratory Results - last 24 hr 07/21/25 07/21/25 07/21/25 05:47 07:46 11:27 MCV 93.0 MCH 30.7 MCHC 33.0 RDW 13.2 Plt Count 129 L MPV 10.8 Absolute Nucleated RBC 0.000 Nucleated RBC % (auto) 0.0 Anion Gap 10 L Estim Creat Clear Calc 54.9 Estimated GFR > 60 POC Glucose 100 191 H Random Glucose 111 Calcium 8.6 07/21/25 07/21/25 07/22/25 16:14 20:20 07:15 MCV MCH MCHC RDW Plt Count MPV Absolute Nucleated RBC Nucleated RBC % (auto) Anion Gap Estim Creat Clear Calc Estimated GFR POC Glucose 179 H 204 H 129 H Random Glucose Calcium Microbiology Microbiology Results: Microbiology 07/18/25 16:09 Blood - Venous Blood Culture - Preliminary No growth after 48 hours. 07/18/25 16:09 Blood - Venous Blood Culture - Preliminary No growth after 48 hours. 07/18/25 Unknown Urine Catheterized Urine Culture - Final No growth. Quality Stroke Does the patient have a stroke diagnosis?: No VTE Prior VTE?: Yes VTE Risk Level:: Medical - moderate - high VTE Device Contraindication: Treatment Not Indicated VTE Drug Contraindication: N/A - Med Ordered
[2025-07-22] MEDS: 0.9 % Sodium Chloride Flush 3 ML SYRINGE IVFLUSH ×3 (08:38→21:25)
[2025-07-22] MEDS: Ferrous Sulfate 324 MG TABLET.DR PO (08:39)
[2025-07-22 11:04] LABS: Glucose, Whole Blood 258 mg/dL (60-115)
--- NOTE | 2025-07-22 14:21 | MHC.CM.PN ---
Addendum entered by Deedee Selby 07/22/25 16:02: [facility] NOW STATING THEY DO NOT HAVE A BED TODAY CM INFORMED DAUGHTER VIA T/C SHE UNDERSTANDS A CM WILL CALL HER TOMORROW WHEN A [facility]ED [facility] Original Note: RUTH SPOKE WITH PTS DAUGHTER WHO REPORTS HER PREFERRED STR FACILITIES WOULD BE [facility] OR [facility] SHE WAS INFORMED [facility] OFFERED A BED TODAY, [facility] DID NOT HAVE A BED TO OFFER MEJIA UNDERSTANDS S TRANSPORT WILL BE BOOKED FOR TODAY TRANSPORT BOOKED FOR 1730 HOURS
[2025-07-22 15:39] VITALS: BP 107/59; PULSE 82; RESP 16; TEMP 36.9; O2SAT 96
[2025-07-22 16:11] LABS: Glucose, Whole Blood 155 mg/dL (60-115)
--- NOTE | 2025-07-22 18:48 | PC.NURSE ---
Radiology notified RN patient is positive for left posterior tibial vein thrombosis ,dr. Vega notified via tiger priority message
--- NOTE | 2025-07-22 18:50 | PM.EVENT ---
Event Note Date of Service: 07/22/25 Event Note: Usg b/l LE was + for DVT - Positive for left posterior tibial deep vein thrombosis - imaging done today Will stop Lovenox and start Eliquis 10mg BID X10 days followed by 5mg po bid , OP mx, hematology and PCP f/up Time Spent With Patient Time: Total time managing care of this patient today ____ minutes.
[2025-07-22 19:16] VITALS: BP 125/58; PULSE 73; RESP 18; TEMP 36.3; O2SAT 96
[2025-07-22 21:01] LABS: Glucose, Whole Blood 160 mg/dL (60-115)
[2025-07-22] MEDS: Latanoprost 0.005 % Ophth Sol 2.5 ML DROPS 1 DROP EYE-BOTH (21:25)
[2025-07-23 03:18] VITALS: BP 125/63; PULSE 98; RESP 15; TEMP 36.9; O2SAT 92
[2025-07-23] MEDS: guaiFENesin DM 200/20/10 ML 10 ML SYRUP PO (03:31)
[2025-07-23 05:48] LABS: Hematocrit 35.5 % (37.0-47.0); Hemoglobin 11.6 g/dl (12.0-16.0); Imm Gran Abs Auto 0.00 X10*3/uL (0.00-0.03); Imm Gran Pct Auto 0.0 % (0.0-0.4); Lymphocytes Absolute Auto 3.4 X10*3/uL (1.2-4.9); MANUAL DIFF FLAG SCAN; Mean Corpuscular HGB Conc 32.7 g/dl (31.0-35.0); Mean Corpuscular Hemoglobin 30.6 pg (27.0-33.0); Mean Corpuscular Volume 93.7 fL (80.0-98.0); NRBC Abs Auto 0.000 X10*3/uL (0.0-0.012); NRBC Pct Auto 0.0 /100WBC (0.0-0.2); Platelet Count 175 X10*3/uL (160-400); Red Blood Count 3.79 X10*6/uL (4.20-5.50); SCAN SMEAR FLAG 1; White Blood Count 5.1 X10*3/uL (4.8-10.8)
[2025-07-23 06:03] LABS: Alanine Aminotransferase 29 U/L (0-31); Albumin Level 2.7 g/dL (3.5-5.0); Alkaline Phosphatase 64 U/L (39-117); Anion Gap 11 (12-20); Aspartate Amino Transferase 51 U/L (5-31); Blood Urea Nitrogen 8 mg/dL (9-16); Calcium 9.0 mg/dL (8.4-10.2); Carbon Dioxide 25 mmol/L (22-29); Chloride 111 mmol/L (96-108); Creatinine Clr Calc Pharmacy 53.2; Estimated Glomerular Filt Rate > 60; Magnesium 1.9 mg/dL (1.6-2.6); Potassium 3.9 mmol/L (3.3-5.1); Sodium 143 mmol/L (135-145); Total Protein 5.6 g/dL (6.5-8.0)
[2025-07-23 07:16] VITALS: BP 131/78; PULSE 74; RESP 16; TEMP 37; O2SAT 95
--- NOTE | 2025-07-23 07:16 | P.PNIM_ITS ---
Subjective Subjective Date of Service: 07/23/25 Interval History: Continues to be pleasantly confused Eating her breakfast Baseline cognitive dysfunction Still awaiting authorization pending approval Review of Systems Review of Systems: Yes all other systems are reviewed and are negative and Unobtainable due to mental status Physical Exam 2 Exam: Exam: General: AOx1, no acute distress Resp: CTA bilaterally CVS: S1, S2, RRR GI: +BS, NT, no distention Musculoskeletal: Generalized weakness Psych: Pleasantly confused Vital Signs: Vital Signs: Last Vital Signs Temp 98.4 F 07/23/25 03:18 Pulse 98 07/23/25 03:18 Resp 15 07/23/25 03:18 BP 125/63 07/23/25 03:18 Pulse Ox 92 07/23/25 03:18 O2 Del Method Room Air 07/23/25 03:18 BMI result Body Mass Index 19.4 Objective Data Active Medications Acetaminophen (Acetaminophen 325 Mg Tablet) 650 mg PO QID PRN PRN Reason: Fever Last Admin: 07/19/25 10:23 Dose: 650 mg Documented By: ROBERTO CARLOS Amoxicillin/Clavulanate Potassium (Amoxicillin/Potassium Clav 875 Mg Tablet) 875 mg PO Q12H [facility] Stop: 07/26/25 17:59 Last Admin: 07/23/25 06:08 Dose: 875 mg Documented By: RONNIE Apixaban (Apixaban 5 Mg Tablet) 10 mg PO BID [facility] Stop: 07/29/25 09:01 Last Admin: 07/22/25 19:26 Dose: 10 mg Documented By: IBRAHIMA Apixaban (Apixaban 5 Mg Tablet) 5 mg PO BID [facility] Ascorbic Acid (Ascorbic Acid 250 Mg Tablet) 125 mg PO DAILY [facility] Last Admin: 07/22/25 08:38 Dose: 125 mg Documented By: MUKUL Atorvastatin Calcium (Atorvastatin Calcium 20 Mg Tablet) 20 mg PO BEDTIME [facility] Last Admin: 07/22/25 21:23 Dose: 20 mg Documented By: IBRAHIMA Calcium Carbonate (Calcium Carbonate 750 Mg Tab.Chew) 750 mg PO Q4H PRN PRN Reason: Heartburn Clopidogrel Bisulfate (Clopidogrel Bisulfate 75 Mg Tablet) 75 mg PO DAILY [facility] Last Admin: 07/22/25 08:39 Dose: 75 mg Documented By: MUKUL Cyanocobalamin (Cyanocobalamin (Vitamin B-12) 500 Mcg Tablet) 2,500 mcg PO DAILY [facility] Last Admin: 07/22/25 08:39 Dose: 2,500 mcg Documented By: MUKUL Dextrose (Dextrose 50 % 25 Gm/50 Ml Syringe) 25 gm IVPUSH Q15M PRN; Protocol PRN Reason: per Hypoglycemia Standing Ord. Donepezil HCl (Donepezil Hcl 10 Mg Tablet) 10 mg PO BEDTIME [facility] Last Admin: 07/22/25 21:23 Dose: 10 mg Documented By: IBRAHIMA Ferrous Sulfate (Ferrous Sulfate 324 Mg Tablet.Dr) 324 mg PO DAILY [facility] Last Admin: 07/22/25 08:39 Dose: 324 mg Documented By: MUKUL Glucose (Glucose Gel 15 Gm Gel..Gram.) 15 gm PO Q15M PRN; Protocol PRN Reason: per Hypoglycemia Standing Ord. Guaifenesin/Dextromethorphan (Guaifenesin Dm 200/20/10 Ml 10 Ml Syrup) 10 ml PO Q4H PRN PRN Reason: Cough Last Admin: 07/23/25 03:31 Dose: 10 ml Documented By: RONNIE Azithromycin 500 mg/ Sodium (Chloride) 250 mls @ 125 mls/hr IV Q24H [facility] Last Infusion: 07/22/25 10:37 Dose: Infused Documented By: MUKUL Insulin Glargine (Insulin Glargine,Hum.Rec.Anlog 100 Unit/Ml 10 Ml Vial) 10 unit SUBCUT DAILY@0900 PRN PRN Reason: BG >130 Insulin Human Lispro (Insulin Lispro 100 Unit/Ml 3 Ml Vial) 0 unit SUBCUT QIDACHS [facility]; Protocol Last Admin: 07/22/25 21:24 Dose: 2 unit Documented By: IBRAHIMA Latanoprost (Latanoprost 0.005 % Ophth Rupinder 2.5 Ml Drops) 1 drop EYE-BOTH BEDTIME [facility] Last Admin: 07/22/25 21:25 Dose: 1 drop Documented By: IBRAHIMA Levothyroxine Sodium (Levothyroxine Sodium 75 Mcg Tablet) 75 mcg PO DAILY@0600 [facility] Last Admin: 07/23/25 06:08 Dose: 75 mcg Documented By: RONNIE Losartan Potassium (Losartan Potassium 50 Mg Tablet) 50 mg PO DAILY [facility]; Protocol Last Admin: 07/22/25 08:39 Dose: 50 mg Documented By: MUKUL Magnesium Hydroxide (Milk Of Magnesia 30 Ml Oral.Susp) 30 ml PO DAILY PRN PRN Reason: Constipation Melatonin (Melatonin 3 Mg Tablet) 6 mg PO BEDTIME PRN PRN Reason: Insomnia Memantine (Memantine Hcl 10 Mg Tablet) 10 mg PO BID [facility] Last Admin: 07/22/25 21:23 Dose: 10 mg Documented By: IBRAHIMA Multivitamins/Vitamin C (Multivitamin Tablet) 1 tab PO DAILY [facility] Last Admin: 07/22/25 08:39 Dose: 1 tab Documented By: MUKUL Ondansetron HCl (Ondansetron Hcl 4 Mg/2 Ml Vial) 4 mg IVPUSH Q8H PRN PRN Reason: Nausea and Vomiting Oseltamivir Phosphate (Oseltamivir Phosphate 30 Mg Capsule) 30 mg PO Q12H [facility] Stop: 07/24/25 21:01 Last Admin: 07/22/25 21:23 Dose: 30 mg Documented By: IBRAHIMA Polyethylene Glycol (Polyethylene Glycol 3350 17 Gm Powd.Pack) 17 gm PO DAILY PRN PRN Reason: Constipation Last Admin: 07/19/25 18:19 Dose: 17 gm Documented By: RUMA Sodium Chloride (0.9 % Sodium Chloride Flush 3 Ml Syringe) 3 ml IVFLUSH QSHIFT [facility] Last Admin: 07/22/25 21:25 Dose: 3 ml Documented By: IBRAHIMA Vitamin D (Cholecalciferol (Vitamin D3) 25 Mcg Tablet) 25 mcg PO DAILY [facility] Last Admin: 07/22/25 08:38 Dose: 25 mcg Documented By: MUKUL Labs 07/23/25 05:26 07/23/25 05:26 Labs: Laboratory Results - last 24 hr 07/22/25 07/22/25 07/22/25 07:15 11:00 16:06 MCV MCH MCHC RDW Plt Count MPV Immature Gran % (Auto) Neut % (Auto) Lymph % (Auto) [place] % (Auto) Eos % (Auto) Baso % (Auto) Lymph # (Auto) [place] # (Auto) Eos # (Auto) Baso # (Auto) Abs Immat Gran (auto) Absolute Neuts (auto) Absolute Nucleated RBC Nucleated RBC % (auto) Smear Tech's Comments Anion Gap Estim Creat Clear Calc Estimated GFR POC Glucose 129 H 258 H 155 H Random Glucose Calcium Magnesium Total Bilirubin AST ALT Alkaline Phosphatase Total Protein Albumin 07/22/25 07/23/25 20:57 05:26 MCV 93.7 MCH 30.6 MCHC 32.7 RDW 12.9 Plt Count 175 D MPV 10.3 Immature Gran % (Auto) 0.0 Neut % (Auto) 24.6 L Lymph % (Auto) 67.3 H [place] % (Auto) 6.7 Eos % (Auto) 0.8 Baso % (Auto) 0.6 Lymph # (Auto) 3.4 [place] # (Auto) 0.3 Eos # (Auto) 0.0 Baso # (Auto) 0.0 Abs Immat Gran (auto) 0.00 Absolute Neuts (auto) 1.2 L Absolute Nucleated RBC 0.000 Nucleated RBC % (auto) 0.0 Smear Tech's Comments VERIFIED Anion Gap 11 L Estim Creat Clear Calc 53.2 Estimated GFR > 60 POC Glucose 160 H Random Glucose 153 H Calcium 9.0 Magnesium 1.9 Total Bilirubin 0.3 AST 51 H ALT 29 Alkaline Phosphatase 64 Total Protein 5.6 L Albumin 2.7 L Assessment and Plan (1) Influenza: Status: Acute Plan Pt is an 89-year-old female with a PMH significant for dementia, insulin- dependent type 2 diabetes, HTN, HLD, hypothyroidism, hx of DVT, PE 5 years ago, and iron deficiency anemia who initially presented to the emergency room on 07/18 complaining of weakness, generalized malaise, fever, cough, and difficulty breathing. Was noted to have sepsis due to influenza a. Patient currently awaiting short-term rehab placement Generalized weakness in the setting of acute influenza type A infection with superimposed bacterial pneumonia Sepsis source: fever and tachycardia secondary to influenza with possible superimposed bacterial pneumonia Tamiflu x5 days, we will switch antibiotics to p.o. Augmentin and azithromycin 5 day course PT recommends STR -daughter still deciding on the rehab and hence the delay in discharge still HTN Continue losartan HLD Continue statin DVT History of PE Ultrasound of bilateral lower extremity revealed DVT as of 07/22/2025 Eliquis 7 day course 10 mg therapeutic initiated Following which she will be on 5 mg p.o. b.i.d. for at least 3-6 months and needs to be followed outpatient Insulin dependent diabetes SSI, Lantus diabetic diet Iron deficiency anemia Continue iron supplementation Dementia Continue donepezil, mematine DNR/DNI, verified with HCP/daughter at beside DVT treatment: Eliquis therapeutic dose Pt requires continued hospitalization for treatment of generalized weakness in the setting of influenza A infection with superimposed pneumonia. Pt is awaiting short-term rehab placement daughter still deciding on the rehab and hence the delay in discharge today- likely will get Auth pending approval levi . Quality Stroke Does the patient have a stroke diagnosis?: No VTE Prior VTE?: Yes VTE Risk Level:: Medical - moderate - high VTE Device Contraindication: Treatment Not Indicated VTE Drug Contraindication: N/A - Med Ordered
[2025-07-23 07:17] LABS: Glucose, Whole Blood 156 mg/dL (60-115)
[2025-07-23] MEDS: 0.9 % Sodium Chloride Flush 3 ML SYRINGE IVFLUSH ×3 (07:52→20:30)
[2025-07-23] MEDS: Ferrous Sulfate 324 MG TABLET.DR PO (08:09)
[2025-07-23 11:35] LABS: Glucose, Whole Blood 171 mg/dL (60-115)
[2025-07-23 15:46] VITALS: BP 148/74; PULSE 97; RESP 14; TEMP 36.8; O2SAT 97
[2025-07-23 16:30] LABS: Glucose, Whole Blood 165 mg/dL (60-115)
[2025-07-23 19:16] VITALS: BP 114/57; PULSE 82; RESP 18; TEMP 36.6; O2SAT 95
[2025-07-23 20:03] LABS: Glucose, Whole Blood 244 mg/dL (60-115)
[2025-07-23] MEDS: Latanoprost 0.005 % Ophth Sol 2.5 ML DROPS 1 DROP EYE-BOTH (21:26)
[2025-07-24 03:28] VITALS: BP 141/86; PULSE 90; RESP 18; TEMP 36.8; O2SAT 97
[2025-07-24 06:32] LABS: Hematocrit 31.9 % (37.0-47.0); Hemoglobin 10.4 g/dl (12.0-16.0); Imm Gran Abs Auto 0.00 X10*3/uL (0.00-0.03); Imm Gran Pct Auto 0.0 % (0.0-0.4); Lymphocytes Absolute Auto 2.2 X10*3/uL (1.2-4.9); MANUAL DIFF FLAG SCAN; Mean Corpuscular HGB Conc 32.6 g/dl (31.0-35.0); Mean Corpuscular Hemoglobin 30.4 pg (27.0-33.0); Mean Corpuscular Volume 93.3 fL (80.0-98.0); NRBC Abs Auto 0.000 X10*3/uL (0.0-0.012); NRBC Pct Auto 0.0 /100WBC (0.0-0.2); Platelet Count 178 X10*3/uL (160-400); Red Blood Count 3.42 X10*6/uL (4.20-5.50); SCAN SMEAR FLAG 1; White Blood Count 3.9 X10*3/uL (4.8-10.8)
[2025-07-24 06:51] LABS: Alanine Aminotransferase 36 U/L (0-31); Albumin Level 2.5 g/dL (3.5-5.0); Alkaline Phosphatase 58 U/L (39-117); Anion Gap 9 (12-20); Aspartate Amino Transferase 55 U/L (5-31); Blood Urea Nitrogen 6 mg/dL (9-16); Calcium 8.9 mg/dL (8.4-10.2); Carbon Dioxide 25 mmol/L (22-29); Chloride 112 mmol/L (96-108); Creatinine Clr Calc Pharmacy 53.2; Estimated Glomerular Filt Rate > 60; Magnesium 1.9 mg/dL (1.6-2.6); Potassium 4.1 mmol/L (3.3-5.1); Sodium 142 mmol/L (135-145); Total Protein 5.4 g/dL (6.5-8.0)
[2025-07-24 07:05] VITALS: BP 124/72; PULSE 74; RESP 16; TEMP 36.7; O2SAT 96
--- NOTE | 2025-07-24 07:16 | P.PNIM_ITS ---
Subjective Subjective Date of Service: 07/24/25 Interval History: Continues to be pleasantly confused Eating her breakfast Baseline cognitive dysfunction Still awaiting authorization pending approval Review of Systems Review of Systems: Yes all other systems are reviewed and are negative and Unobtainable due to mental status Physical Exam 2 Exam: Exam: General: AOx1, no acute distress Resp: CTA bilaterally CVS: S1, S2, RRR GI: +BS, NT, no distention Musculoskeletal: Generalized weakness Psych: Pleasantly confused Vital Signs: Vital Signs: Last Vital Signs Temp 98.1 F 07/24/25 07:05 Pulse 74 07/24/25 07:05 Resp 16 07/24/25 07:05 BP 124/72 07/24/25 07:05 Pulse Ox 96 07/24/25 07:05 O2 Del Method Room Air 07/24/25 07:05 BMI result Body Mass Index 19.4 Objective Data Active Medications Acetaminophen (Acetaminophen 325 Mg Tablet) 650 mg PO QID PRN PRN Reason: Fever Last Admin: 07/19/25 10:23 Dose: 650 mg Documented By: ROBERTO CARLOS Amoxicillin/Clavulanate Potassium (Amoxicillin/Potassium Clav 875 Mg Tablet) 875 mg PO Q12H [facility] Stop: 07/26/25 17:59 Last Admin: 07/24/25 05:58 Dose: 875 mg Documented By: MARTHA Apixaban (Apixaban 5 Mg Tablet) 10 mg PO BID [facility] Stop: 07/29/25 09:01 Last Admin: 07/23/25 20:29 Dose: 10 mg Documented By: MARTHA Apixaban (Apixaban 5 Mg Tablet) 5 mg PO BID [facility] Ascorbic Acid (Ascorbic Acid 250 Mg Tablet) 125 mg PO DAILY [facility] Last Admin: 07/23/25 08:09 Dose: 125 mg Documented By: JANICE Atorvastatin Calcium (Atorvastatin Calcium 20 Mg Tablet) 20 mg PO BEDTIME [facility] Last Admin: 07/23/25 20:29 Dose: 20 mg Documented By: MARTHA Azithromycin (Azithromycin 500 Mg Tablet) 500 mg PO DAILY [facility] Last Admin: 07/23/25 08:08 Dose: 500 mg Documented By: JANICE Calcium Carbonate (Calcium Carbonate 750 Mg Tab.Chew) 750 mg PO Q4H PRN PRN Reason: Heartburn Clopidogrel Bisulfate (Clopidogrel Bisulfate 75 Mg Tablet) 75 mg PO DAILY [facility] Last Admin: 07/23/25 08:08 Dose: 75 mg Documented By: JANICE Cyanocobalamin (Vitamin B12) (Cyanocobalamin (Vitamin B-12) 500 Mcg Tablet) 2,500 mcg PO DAILY [facility] Last Admin: 07/23/25 08:08 Dose: 2,500 mcg Documented By: JANICE Dextrose (Dextrose 50 % 25 Gm/50 Ml Syringe) 25 gm IVPUSH Q15M PRN; Protocol PRN Reason: per Hypoglycemia Standing Ord. Donepezil HCl (Donepezil Hcl 10 Mg Tablet) 10 mg PO BEDTIME [facility] Last Admin: 07/23/25 20:29 Dose: 10 mg Documented By: MARTHA Ferrous Sulfate (Ferrous Sulfate 324 Mg Tablet.Dr) 324 mg PO DAILY [facility] Last Admin: 07/23/25 08:09 Dose: 324 mg Documented By: JANICE Glucose (Glucose Gel 15 Gm Gel..Gram.) 15 gm PO Q15M PRN; Protocol PRN Reason: per Hypoglycemia Standing Ord. Guaifenesin/Dextromethorphan (Guaifenesin Dm 200/20/10 Ml 10 Ml Syrup) 10 ml PO Q4H PRN PRN Reason: Cough Last Admin: 07/23/25 03:31 Dose: 10 ml Documented By: RONNIE Insulin Glargine (Insulin Glargine,Hum.Rec.Anlog 100 Unit/Ml 10 Ml Vial) 10 unit SUBCUT DAILY@0900 PRN PRN Reason: BG >130 Insulin Human Lispro (Insulin Lispro 100 Unit/Ml 3 Ml Vial) 0 unit SUBCUT QIDACHS [facility]; Protocol Last Admin: 07/23/25 20:29 Dose: 4 unit Documented By: MARTHA Latanoprost (Latanoprost 0.005 % Ophth Rupinder 2.5 Ml Drops) 1 drop EYE-BOTH BEDTIME [facility] Last Admin: 07/23/25 21:26 Dose: 1 drop Documented By: MARTHA Levothyroxine Sodium (Levothyroxine Sodium 75 Mcg Tablet) 75 mcg PO DAILY@0600 [facility] Last Admin: 07/24/25 05:58 Dose: 75 mcg Documented By: MARTHA Losartan Potassium (Losartan Potassium 50 Mg Tablet) 50 mg PO DAILY [facility]; Protocol Last Admin: 07/23/25 08:09 Dose: 50 mg Documented By: JANICE Magnesium Hydroxide (Milk Of Magnesia 30 Ml Oral.Susp) 30 ml PO DAILY PRN PRN Reason: Constipation Melatonin (Melatonin 3 Mg Tablet) 6 mg PO BEDTIME PRN PRN Reason: Insomnia Memantine (Memantine Hcl 10 Mg Tablet) 10 mg PO BID [facility] Last Admin: 07/23/25 20:29 Dose: 10 mg Documented By: MARTHA Multivitamins/Vitamin C (Multivitamin Tablet) 1 tab PO DAILY [facility] Last Admin: 07/23/25 08:08 Dose: 1 tab Documented By: JANICE Ondansetron HCl (Ondansetron Hcl 4 Mg/2 Ml Vial) 4 mg IVPUSH Q8H PRN PRN Reason: Nausea and Vomiting Oseltamivir Phosphate (Oseltamivir Phosphate 30 Mg Capsule) 30 mg PO Q12H [facility] Stop: 07/24/25 21:01 Last Admin: 07/23/25 20:29 Dose: 30 mg Documented By: MARTHA Polyethylene Glycol (Polyethylene Glycol 3350 17 Gm Powd.Pack) 17 gm PO DAILY PRN PRN Reason: Constipation Last Admin: 07/19/25 18:19 Dose: 17 gm Documented By: RUMA Sodium Chloride (0.9 % Sodium Chloride Flush 3 Ml Syringe) 3 ml IVFLUSH QSHIFT [facility] Last Admin: 07/23/25 20:30 Dose: 3 ml Documented By: MARTHA Vitamin D (Cholecalciferol (Vitamin D3) 25 Mcg Tablet) 25 mcg PO DAILY [facility] Last Admin: 07/23/25 08:08 Dose: 25 mcg Documented By: JANICE Labs 07/24/25 05:39 07/24/25 05:39 Labs: Laboratory Results - last 24 hr 07/23/25 07/23/25 07/23/25 07:13 11:30 16:24 MCV MCH MCHC RDW Plt Count MPV Anion Gap Estim Creat Clear Calc Estimated GFR POC Glucose 156 H 171 H 165 H Random Glucose Calcium Magnesium Total Bilirubin AST ALT Alkaline Phosphatase Total Protein Albumin 07/23/25 07/24/25 19:58 05:39 MCV 93.3 MCH 30.4 MCHC 32.6 RDW 13.2 Plt Count 178 MPV 10.2 Anion Gap 9 L Estim Creat Clear Calc 53.2 Estimated GFR > 60 POC Glucose 244 H Random Glucose 148 H Calcium 8.9 Magnesium 1.9 Total Bilirubin 0.3 AST 55 H ALT 36 H Alkaline Phosphatase 58 Total Protein 5.4 L Albumin 2.5 L Microbiology Microbiology Results: Microbiology 07/18/25 16:09 Blood Culture - Final Blood - Venous No growth after 5 days. 07/18/25 16:09 Blood Culture - Final Blood - Venous No growth after 5 days. Assessment and Plan (1) Influenza: Status: Acute Plan Pt is an 89-year-old female with a PMH significant for dementia, insulin- dependent type 2 diabetes, HTN, HLD, hypothyroidism, hx of DVT, PE 5 years ago, and iron deficiency anemia who initially presented to the emergency room on 07/18 complaining of weakness, generalized malaise, fever, cough, and difficulty breathing. Was noted to have sepsis due to influenza a. Patient currently awaiting short-term rehab placement Generalized weakness in the setting of acute influenza type A infection with superimposed bacterial pneumonia Sepsis source: fever and tachycardia secondary to influenza with possible superimposed bacterial pneumonia Tamiflu x5 days tomorrow antibiotics p.o. Augmentin and azithromycin 5 day course- to complete levi PT recommends STR -Pt needs a STR and has a bed offer levi post isolation completion tonight HTN Continue losartan HLD Continue statin DVT History of PE Ultrasound of bilateral lower extremity revealed DVT as of 07/22/2025 Eliquis 7 day course 10 mg therapeutic initiated Following which she will be on 5 mg p.o. b.i.d. for at least 3-6 months and needs to be followed outpatient Insulin dependent diabetes SSI, Lantus diabetic diet Iron deficiency anemia Continue iron supplementation Dementia Continue donepezil, mematine DNR/DNI, verified with HCP/daughter at beside DVT treatment: Eliquis therapeutic dose Pt needs a STR and has a bed offer levi post isolation completion tonight. Quality Stroke Does the patient have a stroke diagnosis?: No VTE Prior VTE?: Yes VTE Risk Level:: Medical - moderate - high VTE Device Contraindication: Treatment Not Indicated VTE Drug Contraindication: N/A - Med Ordered
[2025-07-24 07:21] LABS: Glucose, Whole Blood 156 mg/dL (60-115)
[2025-07-24] MEDS: 0.9 % Sodium Chloride Flush 3 ML SYRINGE IVFLUSH ×3 (08:05→20:16)
[2025-07-24] MEDS: Ferrous Sulfate 324 MG TABLET.DR PO (09:32)
[2025-07-24 11:35] LABS: Glucose, Whole Blood 245 mg/dL (60-115)
[2025-07-24 15:09] VITALS: BP 111/56; PULSE 80; RESP 16; TEMP 36.8; O2SAT 97
[2025-07-24 16:29] LABS: Glucose, Whole Blood 155 mg/dL (60-115)
[2025-07-24 19:30] VITALS: BP 130/61; PULSE 69; RESP 16; TEMP 36.9; O2SAT 98
[2025-07-24] MEDS: Latanoprost 0.005 % Ophth Sol 2.5 ML DROPS 1 DROP EYE-BOTH (20:18)
[2025-07-24 20:43] LABS: Glucose, Whole Blood 106 mg/dL (60-115)
[2025-07-25 03:20] VITALS: BP 132/67; PULSE 85; RESP 16; TEMP 36.3; O2SAT 100
[2025-07-25 06:04] LABS: MANUAL DIFF FLAG NO
[2025-07-25 06:06] LABS: Hematocrit 34.1 % (37.0-47.0); Hemoglobin 11.0 g/dl (12.0-16.0); Imm Gran Abs Auto 0.02 X10*3/uL (0.00-0.03); Imm Gran Pct Auto 0.5 % (0.0-0.4); Lymphocytes Absolute Auto 2.1 X10*3/uL (1.2-4.9); Mean Corpuscular HGB Conc 32.3 g/dl (31.0-35.0); Mean Corpuscular Hemoglobin 30.6 pg (27.0-33.0); Mean Corpuscular Volume 95.0 fL (80.0-98.0); NRBC Abs Auto 0.000 X10*3/uL (0.0-0.012); NRBC Pct Auto 0.0 /100WBC (0.0-0.2); Platelet Count 228 X10*3/uL (160-400); Red Blood Count 3.59 X10*6/uL (4.20-5.50); White Blood Count 4.1 X10*3/uL (4.8-10.8)
[2025-07-25 06:18] LABS: Alanine Aminotransferase 56 U/L (0-31); Albumin Level 2.6 g/dL (3.5-5.0); Alkaline Phosphatase 59 U/L (39-117); Anion Gap 10 (12-20); Aspartate Amino Transferase 83 U/L (5-31); Blood Urea Nitrogen 6 mg/dL (9-16); Calcium 9.1 mg/dL (8.4-10.2); Carbon Dioxide 27 mmol/L (22-29); Chloride 110 mmol/L (96-108); Creatinine Clr Calc Pharmacy 51.6; Estimated Glomerular Filt Rate > 60; Magnesium 1.9 mg/dL (1.6-2.6); Potassium 4.4 mmol/L (3.3-5.1); Sodium 143 mmol/L (135-145); Total Protein 5.6 g/dL (6.5-8.0)
[2025-07-25 07:12] LABS: Glucose, Whole Blood 149 mg/dL (60-115)
[2025-07-25 07:13] VITALS: BP 130/71; PULSE 76; RESP 16; TEMP 36.6; O2SAT 94
[2025-07-25] MEDS: 0.9 % Sodium Chloride Flush 3 ML SYRINGE IVFLUSH (07:31)
[2025-07-25] MEDS: Ferrous Sulfate 324 MG TABLET.DR PO (07:31)
--- NOTE | 2025-07-25 08:05 | P.DS_ITS ---
DS: Providers Provider Date of admission: 07/19/25 14:37 Date of discharge: 07/25/25 Primary care physician: Emi Cantu MD DS: Diagnosis Discharge Diagnosis (1) Influenza: Status: Acute DS: Summary Hospital Course Hospital Course: H&P: Chief Complaint: Pneumonia Pt is an 89-year-old female with a PMH significant for dementia, insulin- dependent type 2 diabetes, HTN, HLD, hypothyroidism, hx of DVT 10 years ago, PE 5 years ago, and iron deficiency anemia who initially presented to the emergency room on 07/18 complaining of weakness, generalized malaise, fever, cough, and difficulty breathing. Workup in the ED at that time indicated pt had fever and tested positive for influenza type a. UA was negative UTI. Labs significant for BNP elevated at 644, otherwise overall grossly unremarkable. Pt was placed in physician observation/case management while awaiting placement to STR. This afternoon there were concerns that the patient's condition was worsening and so a repeat chest x-ray was ordered which showed the possibility of a developing right lower lobe pneumonia. Pt was given ceftriaxone and azithromycin and request was made for hospital admission for better management on the medical floor. Pt seen and evaluated where she is resting comfortably in bed. Pt is confused with advanced dementia, but reports she feels well. Pt will be admitted to the hospital for generalized weakness in the setting of influenza type a infection with likely superimposed pneumonia. Hospital course: The patient presented on 07/18/2025 with generalized weakness, malaise, fever, cough, and dyspnea and was found to have sepsis due to influenza A with concern for superimposed bacterial pneumonia. She was treated with oseltamivir and a 5- day course of oral Augmentin and azithromycin with clinical improvement. Isolation precautions were maintained and completed prior to discharge. During hospitalization, she developed worsening lower extremity edema. Bilateral lower extremity ultrasound on 07/22/2025 revealed acute DVT. Given her prior history of pulmonary embolism, she was started on therapeutic apixaban - which she will need to follow in outpatient settings for further medical management. Her hospital course was further complicated by significant generalized weakness. Physical therapy evaluated the patient and recommended short-term rehabilitation. She is medically stable for discharge and has an STR bed available. Patient was hemodynamically stable, not hypoxic on room air, significantly deconditioned and hence going to a rehab Time spent discussing smoking cessation with patient: more than 10 minutes Status at Discharge Functional status at discharge: wheelchair bound Overall status at discharge: patient is progressing back to baseline Time Attestation Discharge Coordination Time (in mins): 56 Quality: Safe Use of Opioids Does Pt have an Active Cancer Diagnosis on the Problem List?: No Quality: Stroke Does the patient have a stroke diagnosis?: No Physical Exam Exam: Exam: General: AOx1, no acute distress Resp: CTA bilaterally CVS: S1, S2, RRR GI: +BS, NT, no distention Musculoskeletal: Generalized weakness Psych: Pleasantly confused Vital Signs: Vital Signs: Last Vital Signs Temp 97.8 F 07/25/25 07:13 Pulse 76 07/25/25 07:13 Resp 16 07/25/25 07:13 BP 130/71 07/25/25 07:13 Pulse Ox 94 07/25/25 07:13 O2 Del Method Room Air 07/25/25 07:13 BMI result Body Mass Index 19.4 DS: Data Data Completed and Pending Labs on day of discharge: Laboratory Results - last 24 hr 07/24/25 07/24/25 07/24/25 11:25 16:19 20:30 WBC RBC Hgb Hct MCV MCH MCHC RDW Plt Count MPV Immature Gran % (Auto) Neut % (Auto) Lymph % (Auto) [place] % (Auto) Eos % (Auto) Baso % (Auto) Lymph # (Auto) [place] # (Auto) Eos # (Auto) Baso # (Auto) Abs Immat Gran (auto) Absolute Neuts (auto) Absolute Nucleated RBC Nucleated RBC % (auto) Sodium Potassium Chloride Carbon Dioxide Anion Gap BUN Creatinine Estim Creat Clear Calc Estimated GFR POC Glucose 245 H 155 H 106 Random Glucose Calcium Magnesium Total Bilirubin AST ALT Alkaline Phosphatase Total Protein Albumin 07/25/25 07/25/25 05:38 06:52 WBC 4.1 L RBC 3.59 L Hgb 11.0 L Hct 34.1 L MCV 95.0 MCH 30.6 MCHC 32.3 RDW 13.1 Plt Count 228 D MPV 10.1 Immature Gran % (Auto) 0.5 H Neut % (Auto) 37.6 L Lymph % (Auto) 50.7 H [place] % (Auto) 8.3 Eos % (Auto) 2.2 Baso % (Auto) 0.7 Lymph # (Auto) 2.1 [place] # (Auto) 0.3 Eos # (Auto) 0.1 Baso # (Auto) 0.0 Abs Immat Gran (auto) 0.02 Absolute Neuts (auto) 1.5 L Absolute Nucleated RBC 0.000 Nucleated RBC % (auto) 0.0 Sodium 143 Potassium 4.4 Chloride 110 H Carbon Dioxide 27 Anion Gap 10 L BUN 6 L Creatinine 0.66 Estim Creat Clear Calc 51.6 Estimated GFR > 60 POC Glucose 149 H Random Glucose 149 H Calcium 9.1 Magnesium 1.9 Total Bilirubin 0.3 AST 83 H ALT 56 H Alkaline Phosphatase 59 Total Protein 5.6 L Albumin 2.6 L Discharge Plan Discharge Anticipated Discharge Date/Time: 07/25/25 09:49 Patient Disposition: Xfer SNF Discharge Diagnosis: Generalized weakness due to flu a in the flu season Referrals: [facility] [Other] [facility] [Outside] Emi Cantu MD [Primary Care Provider, Internal Medicine] - 1 Week Discharge Medications: New Eliquis 5 mg Tablet 10 mg PO BID 4 Days Qty: 15 0RF Rx Instructions: Last dose of 07/28/2025 Eliquis 5 mg Tablet 5 mg PO BID 30 Days Qty: 60 3RF Rx Instructions: Start taking from 03/20/2025 at around 18:00 atorvastatin 20 mg Tablet 20 mg PO BEDTIME 30 Days Qty: 30 3RF dextromethorphan-guaifenesin 10-100 mg/5 mL Syrup 10 ml PO Q4H PRN (Reason: Cough) 14 Days Qty: 1000 0RF Continued cyanocobalamin (vitamin B-12) 2,500 mcg Tablet 2,500 mcg PO DAILY losartan 50 mg tablet 50 mg PO DAILY latanoprost 0.005 % drops 1 drp ophthalmic (eye) BEDTIME Rx Instructions: BOTH EYES cholecalciferol (vitamin D3) 25 mcg (1,000 unit) capsule 25 mcg PO DAILY ascorbic acid (vitamin C) 125 mg tablet,chewable 125 mg PO DAILY insulin degludec [Tresiba FlexTouch U-100] 100 unit/mL (3 mL) insulin pen 14 unit subcut DAILY PRN (Reason: BG >130) clopidogrel 75 mg tablet 75 mg PO DAILY Qty: 90 3RF donepezil 10 mg tablet 10 mg PO BEDTIME Qty: 90 3RF ferrous sulfate 325 mg (65 mg iron) tablet 325 mg PO DAILY Qty: 90 3RF levothyroxine [Levoxyl] 75 mcg tablet 75 mcg PO DAILY Qty: 90 3RF memantine 10 mg tablet 10 mg PO BID Qty: 180 3RF (DME) FreeStyle Lite Strips Strip See Rx Instructions .Route Qty: 100 11RF Rx Instructions: use twice daily dx: e11.9 (DME) blood-glucose meter [FreeStyle Lite Meter] Kit See Rx Instructions .Route Qty: 1 0RF Rx Instructions: use twice daily dx: e11.9 (DME) lancets [FreeStyle Lancets] 28 gauge misc See Rx Instructions .Route Qty: 100 11RF Rx Instructions: use twice daily dx: e11.9 Discontinued rosuvastatin 5 mg tablet 5 mg PO BEDTIME Discharge Orders: Discharge Order (Routine); Ordered 07/25/25 Ordered By: Leanne Vega Diet: Low salt diet Activity on Discharge: Use cane or walker Stand Alone Forms: Patient Portal Discharge page Print Language: Scottish Care Plan Goals: Discharge Condition Stable, afebrile, hemodynamically stable, breathing comfortably on room air. Discharge Instructions Continue all medications as prescribed Monitor for signs of bleeding while on anticoagulation Adhere to diabetic diet Participate in physical therapy at [facility] Follow-Up Primary care provider Anticoagulation management follow-up as outpatient Health Concerns: See above Plan of Treatment: See above Assessment: See above Patient Instructions: Influenza (DC)
--- NOTE | 2025-07-25 11:11 | HO.PM.IMPN ---
Subjective Subjective Date of Service: 07/25/25 Interval History: Continues to be pleasantly confused Eating her breakfast Baseline cognitive dysfunction Still awaiting authorization pending approval Review of Systems Review of Systems: Yes all other systems are reviewed and are negative and Unobtainable due to mental status Physical Exam Exam: Exam: General: AOx1, no acute distress Resp: CTA bilaterally CVS: S1, S2, RRR GI: +BS, NT, no distention Musculoskeletal: Generalized weakness Psych: Pleasantly confused Vital Signs: Vital Signs: Last Vital Signs Temp 97.8 F 07/25/25 07:13 Pulse 76 07/25/25 07:13 Resp 16 07/25/25 07:13 BP 130/71 07/25/25 07:13 Pulse Ox 94 07/25/25 07:13 O2 Del Method Room Air 07/25/25 07:13 BMI result Body Mass Index 19.4 Objective Data Active Medications Acetaminophen (Acetaminophen 325 Mg Tablet) 650 mg PO QID PRN PRN Reason: Fever Last Admin: 07/19/25 10:23 Dose: 650 mg Documented By: ROBERTO CARLOS Amoxicillin/Clavulanate Potassium (Amoxicillin/Potassium Clav 875 Mg Tablet) 875 mg PO Q12H [facility] Stop: 07/26/25 17:59 Last Admin: 07/25/25 05:55 Dose: 875 mg Documented By: MARTHA Apixaban (Apixaban 5 Mg Tablet) 10 mg PO BID [facility] Stop: 07/29/25 09:01 Last Admin: 07/25/25 07:30 Dose: 10 mg Documented By: CHARISSA Apixaban (Apixaban 5 Mg Tablet) 5 mg PO BID [facility] Ascorbic Acid (Ascorbic Acid 250 Mg Tablet) 125 mg PO DAILY [facility] Last Admin: 07/25/25 07:28 Dose: 125 mg Documented By: CHARISSA Atorvastatin Calcium (Atorvastatin Calcium 20 Mg Tablet) 20 mg PO BEDTIME [facility] Last Admin: 07/24/25 20:16 Dose: 20 mg Documented By: MARTHA Azithromycin (Azithromycin 500 Mg Tablet) 500 mg PO DAILY [facility] Last Admin: 07/25/25 07:29 Dose: 500 mg Documented By: CHARISSA Calcium Carbonate (Calcium Carbonate 750 Mg Tab.Chew) 750 mg PO Q4H PRN PRN Reason: Heartburn Clopidogrel Bisulfate (Clopidogrel Bisulfate 75 Mg Tablet) 75 mg PO DAILY [facility] Last Admin: 07/25/25 07:29 Dose: 75 mg Documented By: CHARISSA Cyanocobalamin (Vitamin B12) (Cyanocobalamin (Vitamin B-12) 500 Mcg Tablet) 2,500 mcg PO DAILY [facility] Last Admin: 07/25/25 07:30 Dose: 2,500 mcg Documented By: CHARISSA Dextrose (Dextrose 50 % 25 Gm/50 Ml Syringe) 25 gm IVPUSH Q15M PRN; Protocol PRN Reason: per Hypoglycemia Standing Ord. Donepezil HCl (Donepezil Hcl 10 Mg Tablet) 10 mg PO BEDTIME [facility] Last Admin: 07/24/25 20:16 Dose: 10 mg Documented By: MARTHA Ferrous Sulfate (Ferrous Sulfate 324 Mg Tablet.Dr) 324 mg PO DAILY [facility] Last Admin: 07/25/25 07:31 Dose: 324 mg Documented By: CHARISSA Glucose (Glucose Gel 15 Gm Gel..Gram.) 15 gm PO Q15M PRN; Protocol PRN Reason: per Hypoglycemia Standing Ord. Guaifenesin/Dextromethorphan (Guaifenesin Dm 200/20/10 Ml 10 Ml Syrup) 10 ml PO Q4H PRN PRN Reason: Cough Last Admin: 07/23/25 03:31 Dose: 10 ml Documented By: RONNIE Insulin Glargine (Insulin Glargine,Hum.Rec.Anlog 100 Unit/Ml 10 Ml Vial) 10 unit SUBCUT DAILY@0900 PRN PRN Reason: BG >130 Insulin Human Lispro (Insulin Lispro 100 Unit/Ml 3 Ml Vial) 0 unit SUBCUT QIDACHS [facility]; Protocol Last Admin: 07/25/25 07:17 Dose: Not Given Documented By: CHARISSA Non-Admin Reason: No Insulin Coverage Latanoprost (Latanoprost 0.005 % Ophth Rupinder 2.5 Ml Drops) 1 drop EYE-BOTH BEDTIME [facility] Last Admin: 07/24/25 20:18 Dose: 1 drop Documented By: MARTHA Levothyroxine Sodium (Levothyroxine Sodium 75 Mcg Tablet) 75 mcg PO DAILY@0600 [facility] Last Admin: 07/25/25 05:55 Dose: 75 mcg Documented By: MARTHA Losartan Potassium (Losartan Potassium 50 Mg Tablet) 50 mg PO DAILY [facility]; Protocol Last Admin: 07/25/25 07:28 Dose: 50 mg Documented By: CHARISSA Magnesium Hydroxide (Milk Of Magnesia 30 Ml Oral.Susp) 30 ml PO DAILY PRN PRN Reason: Constipation Melatonin (Melatonin 3 Mg Tablet) 6 mg PO BEDTIME PRN PRN Reason: Insomnia Memantine (Memantine Hcl 10 Mg Tablet) 10 mg PO BID [facility] Last Admin: 07/25/25 07:29 Dose: 10 mg Documented By: CHARISSA Multivitamins/Vitamin C (Multivitamin Tablet) 1 tab PO DAILY [facility] Last Admin: 07/25/25 07:27 Dose: 1 tab Documented By: CHARISSA Ondansetron HCl (Ondansetron Hcl 4 Mg/2 Ml Vial) 4 mg IVPUSH Q8H PRN PRN Reason: Nausea and Vomiting Polyethylene Glycol (Polyethylene Glycol 3350 17 Gm Powd.Pack) 17 gm PO DAILY PRN PRN Reason: Constipation Last Admin: 07/19/25 18:19 Dose: 17 gm Documented By: RUMA Sodium Chloride (0.9 % Sodium Chloride Flush 3 Ml Syringe) 3 ml IVFLUSH QSHIFT [facility] Last Admin: 07/25/25 07:31 Dose: 3 ml Documented By: CHARISSA Vitamin D (Cholecalciferol (Vitamin D3) 25 Mcg Tablet) 25 mcg PO DAILY [facility] Last Admin: 07/25/25 07:30 Dose: 25 mcg Documented By: CHARISSA Labs 07/25/25 05:38 07/25/25 05:38 Labs: Laboratory Results - last 24 hr 07/24/25 07/24/25 07/24/25 11:25 16:19 20:30 MCV MCH MCHC RDW Plt Count MPV Immature Gran % (Auto) Neut % (Auto) Lymph % (Auto) [place] % (Auto) Eos % (Auto) Baso % (Auto) Lymph # (Auto) [place] # (Auto) Eos # (Auto) Baso # (Auto) Abs Immat Gran (auto) Absolute Neuts (auto) Absolute Nucleated RBC Nucleated RBC % (auto) Anion Gap Estim Creat Clear Calc Estimated GFR POC Glucose 245 H 155 H 106 Random Glucose Calcium Magnesium Total Bilirubin AST ALT Alkaline Phosphatase Total Protein Albumin 07/25/25 07/25/25 05:38 06:52 MCV 95.0 MCH 30.6 MCHC 32.3 RDW 13.1 Plt Count 228 D MPV 10.1 Immature Gran % (Auto) 0.5 H Neut % (Auto) 37.6 L Lymph % (Auto) 50.7 H [place] % (Auto) 8.3 Eos % (Auto) 2.2 Baso % (Auto) 0.7 Lymph # (Auto) 2.1 [place] # (Auto) 0.3 Eos # (Auto) 0.1 Baso # (Auto) 0.0 Abs Immat Gran (auto) 0.02 Absolute Neuts (auto) 1.5 L Absolute Nucleated RBC 0.000 Nucleated RBC % (auto) 0.0 Anion Gap 10 L Estim Creat Clear Calc 51.6 Estimated GFR > 60 POC Glucose 149 H Random Glucose 149 H Calcium 9.1 Magnesium 1.9 Total Bilirubin 0.3 AST 83 H ALT 56 H Alkaline Phosphatase 59 Total Protein 5.6 L Albumin 2.6 L Assessment and Plan (1) Influenza: Status: Acute Plan Pt is an 89-year-old female with a PMH significant for dementia, insulin-dependent type 2 diabetes, HTN, HLD, hypothyroidism, hx of DVT, PE 5 years ago, and iron deficiency anemia who initially presented to the emergency room on 07/18 complaining of weakness, generalized malaise, fever, cough, and difficulty breathing. Was noted to have sepsis due to influenza a. Patient currently awaiting short-term rehab placement Delay in disposition-patient was having a bed today at a short-term rehab, currently they are refusing per case management report and, hence we are looking for another bed offer Generalized weakness in the setting of acute influenza type A infection with superimposed bacterial pneumonia Sepsis source: fever and tachycardia secondary to influenza with possible superimposed bacterial pneumonia Tamiflu x5 days tomorrow antibiotics p.o. Augmentin and azithromycin 5 day course- to complete levi PT recommends STR HTN Continue losartan HLD Continue statin DVT History of PE Ultrasound of bilateral lower extremity revealed DVT as of 07/22/2025 Eliquis 7 day course 10 mg therapeutic initiated Following which she will be on 5 mg p.o. b.i.d. for at least 3-6 months and needs to be followed outpatient Insulin dependent diabetes SSI, Lantus diabetic diet Iron deficiency anemia Continue iron supplementation Dementia Continue donepezil, mematine DNR/DNI, verified with HCP/daughter at beside DVT treatment: Eliquis therapeutic dose Delay in disposition-patient was having a bed today at a short-term rehab, currently they are refusing per case management report and, hence we are looking for another bed offer Quality Stroke Does the patient have a stroke diagnosis?: No VTE Prior VTE?: Yes VTE Risk Level:: Medical - moderate - high VTE Device Contraindication: Treatment Not Indicated VTE Drug Contraindication: N/A - Med Ordered
[2025-07-25 11:27] LABS: Glucose, Whole Blood 292 mg/dL (60-115)
--- NOTE | 2025-07-25 11:55 | MHC.CM.PN ---
DP: PT'S /DAUGHTER FIRST CHOICE FOR REHAB ([facility] NOT ABLE TO OFFER A BED. PT'S DAUGHTER NOTIFIED AND AGREEABLE TO [facility] ([facility]) WHO HAS OFFERED A BED. S TRANSPORT BOOKED FOR 3 PM [facility]. RN/PROVIDER AWARE. FINAL IMM ISSUED.
[2025-07-25 14:56] VITALS: BP 132/75; PULSE 88; RESP 18; TEMP 36.4; O2SAT 96
--- NOTE | 2025-07-28 08:17 | P.CDIM_ITS ---
PROVIDER RESPONSE TEXT: To clarify, the appropriate diagnosis supported by the clinical indicators: Underweight QUERY TEXT: PHYSICIAN'S DOCUMENTATION REQUEST Date of Query: 07/24/2025 11:40 AM EST Patient Name: Kylee Garcia Admit Date: 07/19/2025 Dear Leanne Vega MD, A review of the medical record indicates additional documentation may be needed. Please review below and update the documentation accordingly. Clinical Indicators: Height: ( ) 5'6 Weight: ( ) 54.43 kg BMI: ( ) 19.4 Other Clinical Notes Supporting Significance of the BMI: per RD note 07/22/25: on therapeutic diet If possible, please provide an associated diagnosis related to the abnormal BMI, such as: Underweight Weight loss Cachexia Anorexia BMI is not significant Other (explain) Clinically unable to determine (explain) Thank you, Laurie Queen RN Use of terms such as suspected, likely, concern for, or probable (associated with a specific diagnosis that is being evaluated, monitored, or treated as if it exists) are acceptable and can be coded in the inpatient setting, when documented at the time of discharge. Please use your independent medical judgment in providing your response. THIS QUERY IS PART OF THE PERMANENT MEDICAL RECORD
== END 2025-07-25 15:06 | disposition skilled nursing facility (03) | DRG 194 ==
LOC: HO.ED 07-19 10:27 → HO.EDOVER 07-19 14:54 → HO.S3 07-19 18:53
PROVIDERS: Admitting Provider Student in an Organized Health Care Education/Training Program; Emergency Provider Emergency Medicine Emergency Medical Services; PCP Internal Medicine; Visit Provider Student in an Organized Health Care Education/Training Program
DX: J10.08 Influenza due to other identified influenza virus with other specified pneumonia (principal); I82.442 Acute embolism and thrombosis of left tibial vein; Z68.1 Body mass index [BMI] 19.9 or less, adult; J15.9 Unspecified bacterial pneumonia; E03.9 Hypothyroidism, unspecified; E11.42 Type 2 diabetes mellitus with diabetic polyneuropathy; F03.90 Unspecified dementia, unspecified severity, without behavioral disturbance, psychotic disturbance, mood disturbance, and anxiety; D50.9 Iron deficiency anemia, unspecified; R63.6 Underweight; Z66 Do not resuscitate; E78.5 Hyperlipidemia, unspecified; Z86.711 Personal history of pulmonary embolism; Z86.718 Personal history of other venous thrombosis and embolism; Z79.4 Long term (current) use of insulin; Z79.02 Long term (current) use of antithrombotics/antiplatelets; Z79.890 Hormone replacement therapy; Z79.899 Other long term (current) drug therapy
CPT/HCPCS: 36415; 71045; 80048; 80053; 80307; 81001; 82947; 83605; 83735; 83880; 84484; 85025; 85027; 85610; 87040; 87086; 87502; 93005; 93970; 97162; 97530; 99285; J0456; J0696; J1650; J1885; J7120

== ENCOUNTER → 2025-07-18 15:58 | Outpatient (BNV) | payer MEDICARE, SELFPAY | PROVIDERS: Admitting Provider Student in an Organized Health Care Education/Training Program; Emergency Provider Emergency Medicine Emergency Medical Services; PCP Internal Medicine; Visit Provider Internal Medicine Cardiovascular Disease | DX: R94.31 Abnormal electrocardiogram [ECG] [EKG] (principal); R50.9 Fever, unspecified | CPT/HCPCS: 93010 ==

== ENCOUNTER → 2025-07-18 15:58 | Outpatient (BNV) | payer MEDICARE, SELFPAY | PROVIDERS: Emergency Provider Emergency Medicine Emergency Medical Services; PCP Internal Medicine; Visit Provider Radiology Body Imaging | DX: Z03.89 Encounter for observation for other suspected diseases and conditions ruled out (principal) | CPT/HCPCS: 71045 ==

== ENCOUNTER → 2025-07-19 12:07 | Outpatient (BNV) | payer MEDICARE, SELFPAY | PROVIDERS: Emergency Provider Emergency Medicine Emergency Medical Services; PCP Internal Medicine; Visit Provider Radiology Diagnostic Radiology | DX: R05.9 Cough, unspecified (principal) | CPT/HCPCS: 71045 ==

== ENCOUNTER 2025-07-19 14:37 | Outpatient (BNV) | payer MEDICARE, SELFPAY | END 2025-07-22 18:15 | PROVIDERS: Admitting Provider Student in an Organized Health Care Education/Training Program; Emergency Provider Emergency Medicine Emergency Medical Services; PCP Internal Medicine; Visit Provider Specialist | DX: I82.542 Chronic embolism and thrombosis of left tibial vein (principal) | CPT/HCPCS: 93970 ==

== ENCOUNTER → 2025-07-19 14:37 | Outpatient (BNV) | payer MEDICARE, SELFPAY | PROVIDERS: Admitting Provider Student in an Organized Health Care Education/Training Program; Emergency Provider Emergency Medicine Emergency Medical Services; PCP Internal Medicine; Visit Provider Student in an Organized Health Care Education/Training Program | DX: J11.1 Influenza due to unidentified influenza virus with other respiratory manifestations (principal); R53.1 Weakness | CPT/HCPCS: 99223; 99232; 99233; 99239; 99358; 99499 ==